=== PATIENT | female | born 1965 | race Caucasian/White ===

== ENCOUNTER → 2017-05-23 21:52 | Outpatient (CLI) | payer OTHER, SELFPAY ==
[2017-05-28 14:40] LABS: HPV Reflexed? NOT INDICATED
== END ==
PROVIDERS: Visit Provider Obstetrics & Gynecology
DX: Z12.4 Encounter for screening for malignant neoplasm of cervix (principal)
CPT/HCPCS: 88175; G0145

== ENCOUNTER → 2017-06-06 08:31 | Outpatient (CLI) | payer OTHER, SELFPAY ==
[2017-06-06 10:05] LABS: Hematocrit 41.1 % (37-47); Hemoglobin 13.8 g/dl (12.0-15.0); Mean Corp Hgb Conc 33.6 g/gl (32-36); Mean Corpuscular Hgb 30.5 pg (27.0-32.0); Mean Corpuscular Volume 90.7 fL (81-99); Mean Platelet Vol. 9.9 fl (6.2-12.0); Platelet Count 245 K/mm3 (150-450); RBC Distribution Width CV 12.4 % (11.6-14.6); RBC Distribution Width SD 40.9 fl (35.1-43.9); Red Blood Count 4.53 M/mm3 (4.2-5.4); White Blood Count 4.1 K/mm3 (4.4-11.0)
[2017-06-06 10:07] LABS: Scan Indicated on CBC? Y/N NO
[2017-06-06 10:22] LABS: Hemoglobin A1c 6.6 % (4.2-6.3)
[2017-06-06 10:24] LABS: Progesterone Level 0.19 ng/mL (See Comment)
[2017-06-06 10:27] LABS: Estradiol 19.9 pg/mL; Free T3 2.7 pg/mL (2.18-3.98); T4 Free Direct 0.97 ng/dL (0.76-1.46); Thyroid Stim Hormone (TSH) 1.68 uIU/mL (0.358-3.74)
[2017-06-06 10:28] LABS: ALB/GLOB Ratio 0.9 RATIO (0.9-2.4); AST(SGOT) 21 U/L (15-37); Alanine Aminotransfer ALT/SGPT 30 U/L (13-56); Albumin, Serum 3.4 g/dL (3.2-5.0); Alkaline Phosphatase 125 U/L (45-117); Anion Gap 7 (5-15); BUN 15 mg/dL (7-18); BUN/Creat Ratio 17.7 RATIO (10-20); Calcium,Total 8.5 mg/dL (8.5-10.1); Chloride 108 mmol/L (98-107); Cholesterol 151 mg/dL (200); Creatinine, Serum 0.85 mg/dL (0.55-1.02); EST Glomerular Filtration Rate 74 mL/min (>60); Est Glom Filt Rate - Afr Amer 90 mL/min (>60); Ferritin 63 ng/mL (8-252); Globulin 3.7 g/dL (2.2-4.2); Glucose 162 mg/dL (74-106); High Density Lipoprotein 60 mg/dL; Iron 89 ug/dL (50-170); Potassium 3.8 mmol/L (3.5-5.1); Protein, Total 7.1 g/dL (6.4-8.2); Sodium Level 141 mmol/L (136-145); Thyroid Stim Hormone (TSH) 1.71 uIU/mL (0.358-3.74); Triglycerides 140 mg/dL; Very Low Density Lipoprotein 28 mg/dL (5-40)
[2017-06-07 08:39] LABS: DHEA Sulfate 125.8 ug/dL (41.2-243.7)
== END ==
PROVIDERS: Family Provider Family Medicine; PCP Family Medicine; Visit Provider Obstetrics & Gynecology
DX: N95.1 Menopausal and female climacteric states (principal); E11.9 Type 2 diabetes mellitus without complications; G25.81 Restless legs syndrome
CPT/HCPCS: 36415; 80053; 80061; 82533; 82627; 82670; 82728; 83036; 83540; 84144; 84403; 84439; 84443; 84481; 85027; 82626

== ENCOUNTER → 2017-06-27 10:21 | Outpatient (CLI) | payer OTHER, SELFPAY ==
--- NOTE | 2017-06-27 10:22 | BI_ITS ---
MAMMOGRAPHY - BILATERAL SCREENING REASON FOR EXAM: Female, 52 years old. Routine annual screening examination. PERTINENT HISTORY: Grandmother with breast cancer. Aunts with breast cancer. TECHNIQUE: Digital bilateral breast suzan (3D mammographic acquisition) in the CC and MLO projections. 2-D mediolateral oblique (MLO) and craniocaudad (CC) views of both breasts were obtained. CAD: Full Field Digital Mammography with Computer Added Detection was performed. COMPARISON: Comparison is made with prior study dated May 23, 2014 and May 06, 2012. FINDINGS: Breast Composition: The breasts are heterogeneously dense, which may obscure small masses. There are no dominant masses or suspicious calcifications. No other significant abnormalities are identified. There has been no significant change since the prior study. BI/SCREENING MAMM (CAD), BILAT IMPRESSION: Stable bilateral screening mammogram. Yearly follow-up mammogram recommended. (A) ASSESSMENT CATEGORY: BIRADS Category 1: Negative. A letter regarding these results will be sent to the patient by the facility within 30 days. Approximately 10% of breast cancers are not detected by mammography. A normal mammogram should not delay biopsy of a clinically suspicious abnormality. [id number] Electronically Signed: Ayush Bobby MD at 12:46 EDT Tel [phone], Service support ,
== END ==
PROVIDERS: Family Provider Family Medicine; PCP Family Medicine; Visit Provider Obstetrics & Gynecology
DX: Z12.31 Encounter for screening mammogram for malignant neoplasm of breast (principal)
CPT/HCPCS: 77063; 77067

== ENCOUNTER 2017-07-14 16:00 | Outpatient (RCR) | payer OTHER, SELFPAY | END 2017-07-14 23:59 | LOC: NS 16:00 | PROVIDERS: Family Provider Family Medicine; PCP Family Medicine; Visit Provider Family Medicine | DX: E66.9 Obesity, unspecified (principal); Z68.43 Body mass index [BMI] 50.0-59.9, adult; Z71.3 Dietary counseling and surveillance | CPT/HCPCS: 97802 ==

== ENCOUNTER → 2017-08-06 10:57 | Outpatient (CLI) | payer OTHER, SELFPAY ==
--- NOTE | 2017-08-06 11:00 | RAD_ITS ---
STUDY: X-RAY CHEST REASON FOR EXAM: Female, 52 years old. Preop foot surgery. TECHNIQUE: Frontal and lateral views of the chest. COMPARISON: 02/22/2014. FINDINGS: The lungs are clear and expanded. There is no demonstrated pleural abnormality. Normal size heart. Normal mediastinum and chelsie. Normal visualized pulmonary arteries. Normal visualized aortic arch and descending thoracic aorta. Normal visualized thoracic spine. Normal visualized ribs, clavicles, and shoulders. There is no demonstrated abnormality of the visualized soft tissue structures of the upper abdomen. RAD/Chest PA and Lateral IMPRESSION: Normal x-ray examination of the chest. Electronically Signed: Alex Lovell MD at 17:28 EDT , Service support ,
[2017-08-06 12:23] LABS: Prothrombin Time (Protime)PT. 12.9 SECONDS (11.7-14.9)
[2017-08-06 12:24] LABS: Partial Thromboplast Time 30.3 Seconds (24.1-36.2)
[2017-08-06 12:39] LABS: Anion Gap 7 (5-15); BUN 14 mg/dL (7-18); BUN/Creat Ratio 15.7 RATIO (10-20); Calcium,Total 9.1 mg/dL (8.5-10.1); Chloride 105 mmol/L (98-107); Creatinine, Serum 0.89 mg/dL (0.55-1.02); EST Glomerular Filtration Rate 70 mL/min (>60); Est Glom Filt Rate - Afr Amer 84 mL/min (>60); Glucose 88 mg/dL (74-106); Sodium Level 141 mmol/L (136-145)
[2017-08-06 12:46] LABS: Hemoglobin A1c 6.2 % (4.2-6.3)
[2017-08-06 18:23] LABS: Absolute Lymphocyte Count 1.81 X10^3/ul (0.83-4.51); Absolute Neutrophil Count 5.3 X10^3/uL (2.0-7.7); Basophil# 0.03 X10^3/uL; Basophil% 0.4 % (0-1); Eosinophil# 0.31 X10^3/uL; Eosinophils% 3.8 % (0-5); Hematocrit 42.9 % (37-47); Hemoglobin 14.5 g/dl (12.0-15.0); Lymphocyte # 1.81 X10^3/ul (4.0); Lymphocyte % 22.2 % (19-41); Mean Corp Hgb Conc 33.8 g/gl (32-36); Mean Corpuscular Hgb 30.4 pg (27.0-32.0); Mean Corpuscular Volume 89.9 fL (81-99); Mean Platelet Vol. 10.1 fl (6.2-12.0); Monocyte# 0.63 X10^3/uL; Monocyte% 7.7 % (0-10); Neutrophil # 5.34 X10^3/uL (2.7-7.7); Neutrophil % 65.7 % (47-70); Platelet Count 243 K/mm3 (150-450); RBC Distribution Width SD 42.4 fl (35.1-43.9); Red Blood Count 4.77 M/mm3 (4.2-5.4); White Blood Count 8.1 K/mm3 (4.4-11.0)
[2017-08-06 18:25] LABS: POSITIVE COUNT NO; POSITIVE DIFFERENTIAL NO; POSITIVE MORPHOLOGY NO
== END ==
PROVIDERS: Family Provider Family Medicine; PCP Family Medicine; Visit Provider Family Medicine
DX: Z01.818 Encounter for other preprocedural examination (principal)
CPT/HCPCS: 36415; 71046; 80048; 83036; 85025; 85610; 85730

== ENCOUNTER 2017-08-15 07:55 | Day surgery (SDC) | payer OTHER, SELFPAY ==
[2017-08-15] VITALS (7 sets, daily range): BP systolic 106–142; BP diastolic 39–72; PULSE 65–93; RESP 16; TEMP 36.2–37.1; O2SAT 93–98; BMI 47.4
[2017-08-15 08:56] LABS: Bedside Glucose 158 mg/dL (70-110)
--- NOTE | 2017-08-15 09:20 | TESH_PTH ---
PATIENT: CHANELLE OCONNOR LOC: [facility] U#:[id number] AGE/SX: 52/F ROOM: RE08/15/[address]: Dr. Danis Alvarado DPM : 1965 BED: DIS: 08/15/2017 SPEC #: [id number] RECD: 08/15/17 14:17 STATUS: ANGIE KELLY #: [id number] JURGEN: 08/15/17 09:[address]: Danis Alvarado DEPT: SURGICAL PATHOLOGY RECD BY: Mikael Ricketts ENTERED: 08/15/17 14:52 SP TYPE: TENDON OTHR DR: Dr. 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 A piece of bone with reactive changes, negative for acute osteomyelitis. JULI:akshat 08/22/17 MICROSCOPIC DESCRIPTION Slides are reviewed. GROSS DESCRIPTION Received in fixative is one container labeled with the patient's name and designated resected heel spur and debrided Achilles tendon. The specimen consists of multiple irregular fragments of pink-white soft tissue that in aggregate measure 7 x 6 x 0.5 cm. Also present in the specimen container is a discoid fragment of pink-white bone measuring 2.5 x 1.5 x0.6 cm. Script Manager sections are submitted in three cassettes as follows: 1 & 2 ? soft tissue, 3 ? bone after decalcification. / AM:akshat 08/15/17 TC:5 CPT: 22061, 99617
--- NOTE | 2017-08-15 09:30 | RAD_ITS ---
STUDY: X-RAY - RIGHT FOOT CLINICAL: Female, 52 years old. Retrocalcaneal spur resection. TECHNIQUE: 2 intraoperative view(s) of the foot. COMPARISON: None. FINDINGS: The patient is status post retrocalcaneal spur resection. RAD/Foot min 3 Views IMPRESSION: Status post retrocalcaneal spur resection. Electronically Signed: Ayush Bobby MD at 14:02 EDT Tel [phone], Service support ,
[2017-08-15] MEDS: Bupivacaine Mpf 0.5% 30 ML VIAL (12:02)
--- NOTE | 2017-08-15 12:16 | PCM.OPRPT ---
Report of Operation Date of Procedure: 08/15/17 - Surgeon: Danis Alvarado DPM Pre-Operative Diagnosis: Achilles tendinitis with retrocalcaneal spur and Haglunds deformity, right Post-Operative Diagnosis: Same Surgery/Procedure Performed:: Achilles tendon debridement, repair w/ resection of retrocalcaneal spur and Sabine's Deformity, right (detach and reattach achilles tendon) Description of Surgical Findings:: Significant retrocalcaneal spur and Haglunds deformity, achilles tendinosis - right data migration lead: Yes - Dr. Cuello Type of Anesthesia:: General Specimen's removed: Debrided right achilles tendon and resected retrocalcaneal spur and Haglunds deformity sent to pathology Estimated Blood Loss (mL): 10mL Description of Procedure: Indications: This is a 52 year old female with chronic right posterior heel pain, despite extensive conservative/nonsurgical management. She continues to have pain and symptoms. Xrays showed a retrocalcaneal spur with Sabine's Deformity, which was confirmed with MRI as well as showing Achilles tendinosis. She continued to have pain which was really bothering her and affecting her daily activities. Because symptoms persist, she has elected to undergo detach/reattach Achilles tendon with resection of the retrocalcaneal spur and Sabine's Deformity with debridement and repair of the Achilles tendon. This was discussed with her in great detail, reviewed the possible benefits vs risks and potential complications. Typical post op recovery was reviewed with her. The goals and the expectations were reviewed with her in detail. The consent forms were reviewed with her in detail, and she freely signed them. No guarantees were given or implied. All of her questions were answered. Operative Procedure: The patient was brought back into the operating room. A time out was performed and the patient was properly identified and the surgical plan was confirmed. The patient received 900mg of IV Clindamycin for antibiotic prophylaxis. A well padded pneumatic tourniquet was applied around the right thigh. The patient received general per the anesthesiologist. The patient was placed on the operating room table in the prone position, with good padding and offloading for all of the bony prominences. She was carefully secured to the operating room table with a safety belt around her waist. The right foot/ankle/leg was scrubbed, prepped, draped in the usual aseptic fashion. The right foot was elevated for 3 minutes and the left thigh pneumatic tourniquet was inflated to 350mmHg. Attention was directed to the posterior heel. There was a palpable exostosis present at the level of the posterior calcaneus. A linear incision was made using a 15 blade to the posterior aspect of the distal Achilles tendon and posterior calcaneus. Careful blunt dissection was completed down through the subcutaneous tissue layer, down to the Achilles tendon and posterior calcaneus. The distal Achilles tendon was incised at the level of the distal midline, and was partially reflected off of the central posterior calcaneus exposing the retrocalcaneal spur and Sabine deformity. The retrocalcaneal spur and the Sabine deformity were resected using a powered sagittal saw and a powered rasp, the resected bone was sent to pathology. The Achilles tendon itself was also noted to be thickened with calcification at the level of the insertion consistent with tendinosis. Intraoperative fluoroscopy was obtained confirming proper resection of the spur and Sabine deformity. The site was flushed out with copious amounts of normal saline solution. The Achilles tendon was reattached to the central portion of the posterior calcaneus using 1 Arthrex Speedbridge in standard fashion. 2 river pilot holes were created for the 4.75mm BioComposite Swivelock anchors at the level of 1 cm proximal to the distal insertion of the Achilles tendon and central to each half of the tendon. The river pilot holes were tapped with the 4.75mm tap. The two 4.75mm BioComposite Swivel anchors were inserted. The suture was passed through the Achilles tendon on each side. The 2 distal holes were prepared on the posterior calcaneus distal to the insertion of the Achilles tendon with the drill and then the tap. One suture tail from each of the proximal anchors were retrieved and passed through the 2 SwiveLock anchors. The tension was adjusted to the appropriate tension and the 4.75 mm Swivelock anchors were inserted into the distal prepared bone sites. The suture tails were cut flush with the Swivelock anchors. The Swivelock anchors were flush with the bone. The FiberWire suture from each Swivelock anchor was also passed through the Achilles tendon and tied for extra stability and repair. 2-0 Vicryl was also used to reapproximate the midline Achilles tendon incision. There was excellent repair of the Achilles tendon, with negative Hendrix test. The surgical site was flushed out with copious amounts of normal saline solution. The subcutaneous tissue layer was reapproximated using 3-0 Vicryl. the skin was reapproximated using 4-0 Monocryl. The pneumatic tourniquet was deflated at 90 minutes, there was immediate return of warmth and perfusion to the foot and to all toes on the foot with normal temperature present. CFT < 2 seconds to all toes. 20mL of 0.5% bupivacaine plain was given as a local nerve block around the surgical site. A dressing was applied which consisted of Cavilon to the sutured skin incision edges, and then steristrips, Betadine soaked adaptic, 4x4 gauze, Kerlix and dylon bandage, and a well padded below the knee posterior splint. The patient tolerated the above operative procedure well at the anesthesia well with no complication. The patient was transported to the recovery room with vital signs stable and in good condition. Post operative orders were placed. Post operative instructions were reviewed with her as well as with her who was present with her today. No weightbearing right foot, keep right foot elevated for at least 50 minutes of every hour, keep dressing clean, dry and intact. Prescription for Percocet 5mg/325mg was prescribed: 1-2 tabs PO q 4 hours PRN pain for pain control. Xarelto 10mg tablet once a day to help prevent a blood clot. She is to follow up with me within 1 week or sooner if needed. Post operative xrays were obtained in the recovery room which confirmed resection of the right retrocalcaneal spur and Sabine deformity otherwise no acute changes with no post operative complications. Grafts/Implants Used: Arthrex Speed Bridge - Complications None
--- NOTE | 2017-08-15 12:17 | RAD_ITS ---
STUDY: X-RAY - RIGHT CALCANEUS REASON FOR EXAM: Female, 52 years old. Postoperative evaluation. TECHNIQUE: 3 view(s) of the calcaneus were obtained. COMPARISON: None. FINDINGS: There has been resection of the spur at insertion of the Achilles tendon. Postoperative soft tissue changes. RAD/Calcaneus min 2 Views IMPRESSION: Resection of the spur at the insertion of the Achilles tendon. Postoperative soft tissue changes. Electronically Signed: Ayush Bobby MD at 14:02 EDT Tel [phone], Service support ,
--- NOTE | 2017-08-15 12:20 | OP.PCM_ITS ---
Report of Operation Date of Procedure: 08/15/17 - Surgeon: Danis Alvarado DPM Pre-Operative Diagnosis: Achilles tendinitis with retrocalcaneal spur and Haglunds deformity, right Post-Operative Diagnosis: Same Surgery/Procedure Performed:: Achilles tendon debridement, repair w/ resection of retrocalcaneal spur and Sabine's Deformity, right (detach and reattach achilles tendon) Description of Surgical Findings:: Significant retrocalcaneal spur and Haglunds deformity, achilles tendinosis - right manager of tires sales: Yes - Dr. Cuello Type of Anesthesia:: General Specimen's removed: Debrided right achilles tendon and resected retrocalcaneal spur and Haglunds deformity sent to pathology Estimated Blood Loss (mL): 10mL Description of Procedure: Indications: This is a 52 year old female with chronic right posterior heel pain , despite extensive conservative/nonsurgical management. She continues to have pain and symptoms. Xrays showed a retrocalcaneal spur with Sabine's Deformity, which was confirmed with MRI as well as showing Achilles tendinosis. She continued to have pain which was really bothering her and affecting her daily activities. Because symptoms persist, she has elected to undergo detach/ reattach Achilles tendon with resection of the retrocalcaneal spur and Sabine' s Deformity with debridement and repair of the Achilles tendon. This was discussed with her in great detail, reviewed the possible benefits vs risks and potential complications. Typical post op recovery was reviewed with her. The goals and the expectations were reviewed with her in detail. The consent forms were reviewed with her in detail, and she freely signed them. No guarantees were given or implied. All of her questions were answered. Operative Procedure: The patient was brought back into the operating room. A time out was performed and the patient was properly identified and the surgical plan was confirmed. The patient received 900mg of IV Clindamycin for antibiotic prophylaxis. A well padded pneumatic tourniquet was applied around the right thigh. The patient received general per the anesthesiologist. The patient was placed on the operating room table in the prone position, with good padding and offloading for all of the bony prominences. She was carefully secured to the operating room table with a safety belt around her waist. The right foot/ankle/ leg was scrubbed, prepped, draped in the usual aseptic fashion. The right foot was elevated for 3 minutes and the left thigh pneumatic tourniquet was inflated to 350mmHg. Attention was directed to the posterior heel. There was a palpable exostosis present at the level of the posterior calcaneus. A linear incision was made using a 15 blade to the posterior aspect of the distal Achilles tendon and posterior calcaneus. Careful blunt dissection was completed down through the subcutaneous tissue layer, down to the Achilles tendon and posterior calcaneus. The distal Achilles tendon was incised at the level of the distal midline, and was partially reflected off of the central posterior calcaneus exposing the retrocalcaneal spur and Sabine deformity. The retrocalcaneal spur and the Sabine deformity were resected using a powered sagittal saw and a powered rasp, the resected bone was sent to pathology. The Achilles tendon itself was also noted to be thickened with calcification at the level of the insertion consistent with tendinosis. Intraoperative fluoroscopy was obtained confirming proper resection of the spur and Sabine deformity. The site was flushed out with copious amounts of normal saline solution. The Achilles tendon was reattached to the central portion of the posterior calcaneus using 1 Arthrex Speedbridge in standard fashion. 2 navy fighter pilot holes were created for the 4.75mm BioComposite Swivelock anchors at the level of 1 cm proximal to the distal insertion of the Achilles tendon and central to each half of the tendon. The navy fighter pilot holes were tapped with the 4.75mm tap. The two 4.75mm BioComposite Swivel anchors were inserted. The suture was passed through the Achilles tendon on each side. The 2 distal holes were prepared on the posterior calcaneus distal to the insertion of the Achilles tendon with the drill and then the tap. One suture tail from each of the proximal anchors were retrieved and passed through the 2 SwiveLock anchors. The tension was adjusted to the appropriate tension and the 4.75 mm Swivelock anchors were inserted into the distal prepared bone sites. The suture tails were cut flush with the Swivelock anchors. The Swivelock anchors were flush with the bone. The FiberWire suture from each Swivelock anchor was also passed through the Achilles tendon and tied for extra stability and repair. 2-0 Vicryl was also used to reapproximate the midline Achilles tendon incision. There was excellent repair of the Achilles tendon, with negative Hendrix test. The surgical site was flushed out with copious amounts of normal saline solution. The subcutaneous tissue layer was reapproximated using 3-0 Vicryl. the skin was reapproximated using 4-0 Monocryl. The pneumatic tourniquet was deflated at 90 minutes, there was immediate return of warmth and perfusion to the foot and to all toes on the foot with normal temperature present. CFT < 2 seconds to all toes. 20mL of 0.5% bupivacaine plain was given as a local nerve block around the surgical site. A dressing was applied which consisted of Cavilon to the sutured skin incision edges, and then steristrips, Betadine soaked adaptic, 4x4 gauze, Kerlix and dylon bandage, and a well padded below the knee posterior splint. The patient tolerated the above operative procedure well at the anesthesia well with no complication. The patient was transported to the recovery room with vital signs stable and in good condition. Post operative orders were placed. Post operative instructions were reviewed with her as well as with her who was present with her today. No weightbearing right foot, keep right foot elevated for at least 50 minutes of every hour, keep dressing clean, dry and intact. Prescription for Percocet 5mg/325mg was prescribed: 1-2 tabs PO q 4 hours PRN pain for pain control. Xarelto 10mg tablet once a day to help prevent a blood clot. She is to follow up with me within 1 week or sooner if needed. Post operative xrays were obtained in the recovery room which confirmed resection of the right retrocalcaneal spur and Sabine deformity otherwise no acute changes with no post operative complications. Grafts/Implants Used: Arthrex Speed Bridge - Complications None
--- NOTE | 2017-08-15 12:21 | DCINST_ITS ---
Discharge Diet: Light diet - advance as tolerated Discharge Activity: May Not Drive Weight Bearing Status: No weight bearing - No weightbearing right foot Keep extremity elevated above heart level: Right Leg - Keep right foot elevated for at least 50 minutes of every hour will pillows, keep back of heel offloaded at all times Call your doctor if your incision/area has: Continuous Slow Oozing, Sudden Increased Bleeding, Foul Smelling Discharge Call your doctor if you observe: Fever of 101 or Higher, Shortness of breath, Chest pain, Increased palpitations (irregular heartbeat), Calf discomfort, Uncontrolled pain Cleanse incision/area with: Do not get Incision Wet, Keep Dressing Clean & Dry Allergies/Adverse Reactions: Allergies amoxicillin trihydrate [From Augmentin] Adverse Reaction (Verified 08/12/17 15: 11) Nausea lisinopril Adverse Reaction (Verified 08/12/17 15:11) Other COUGH potassium clavulanate [From Augmentin] Adverse Reaction (Verified 08/12/17 15:11 ) Nausea sibutramine HCl monohydrate [From Meridia] Adverse Reaction (Verified 08/12/17 15:11) headache HEADACHE venlafaxine HCl [From Effexor] Adverse Reaction (Verified 08/12/17 15:11) Nausea Medications to take at Discharge Citalopram [Celexa] 20 mg PO DAILY 02/22/14 Metformin(XR) [Glucophage Xr] 500 mg PO DAILY 02/27/15 Atorvastatin Calcium [Lipitor] 20 mg PO QHS 07/15/15 Cephalexin [Keflex] 500 mg PO TID 07/15/15 Clindamycin [Cleocin] 300 mg PO Q8H 3 Days #9 cap 08/15/17 Oxycodone HCl/Acetaminophen [Percocet 5/325] 1 - 2 tab PO Q4H PRN PRN 3 Days # 30 tab 08/15/17 Rivaroxaban [Xarelto] 10 mg PO DAILY 30 Days #15 tab 08/15/17 The following prescriptions were given: Oxycodone HCl/Acetaminophen [Percocet 5/325] 1 - 2 tab PO Q4H PRN PRN 3 Days # 30 tab PRN Reason: Pain Clindamycin [Cleocin] 300 mg PO Q8H 3 Days #9 cap Rivaroxaban [Xarelto] 10 mg PO DAILY 30 Days #15 tab Primary Care Physician: Naeem Headley MD [Primary Care Provider] - Please Follow Up With: Danis Alvarado DPM When: within 1 week, sooner if needed
[2017-08-15 13:01] LABS: Bedside Glucose 112 mg/dL (70-110)
== END 2017-08-15 14:30 | disposition home or self-care (01) ==
LOC: SDC 07:56 → AC 07:58
PROVIDERS: Family Provider Family Medicine; PCP Family Medicine; Visit Provider Podiatrist
PROC: (CPT 28119; principal; 2017-08-15 09:15)
DX: M76.61 Achilles tendinitis, right leg (principal); M92.61 Juvenile osteochondrosis of tarsus, right ankle; F41.9 Anxiety disorder, unspecified; E11.9 Type 2 diabetes mellitus without complications; Z79.899 Other long term (current) drug therapy; G47.33 Obstructive sleep apnea (adult) (pediatric)
CPT/HCPCS: 01480; 27650; 28119; 73630; 73650; 76000; 82962; 88304; 88311; C1713; J7120; J2405

== ENCOUNTER 2017-09-09 09:32 | Outpatient (RCR) | payer OTHER, SELFPAY | END 2017-09-13 23:59 | LOC: NS 09:32 | PROVIDERS: Family Provider Family Medicine; PCP Family Medicine; Visit Provider Family Medicine | DX: E66.9 Obesity, unspecified (principal); Z68.43 Body mass index [BMI] 50.0-59.9, adult; Z71.3 Dietary counseling and surveillance | CPT/HCPCS: 97803 ==

== ENCOUNTER 2017-09-30 15:08 | Outpatient (RCR) | payer OTHER, SELFPAY | END 2017-09-30 23:59 | LOC: NS 15:08 | PROVIDERS: Family Provider Family Medicine; PCP Family Medicine; Visit Provider Family Medicine | DX: E66.9 Obesity, unspecified (principal); Z68.43 Body mass index [BMI] 50.0-59.9, adult; Z71.3 Dietary counseling and surveillance | CPT/HCPCS: 97803 ==

== ENCOUNTER 2017-10-15 16:54 | Outpatient (RCR) | payer OTHER, SELFPAY ==
--- NOTE | 2017-10-15 18:10 | HP.PTEVAL_ITS ---
Patient's Visit Information CHANELLE OCONNOR is a 52 year old F referred to Physical Therapy by Danis Alvarado with a diagnosis of achilles tendon debridement, removed heel spur and heel deformity. Date of Evaluation: 10/15/17 Physical Therapist: Carole Zimmerman - Visit Plan Frequency: 2 Duration: 4 Plan: 2X/ week for 4 weeks for R ankl stretching, strenghtneing, gait training, balance and proprioception with HEP - Subjective Subjective: On August 15, 2017 had surgery and was on a scooter for a month and a boot for a month. She is doing well. She has been in a normal shoe since Friday and no problems with transition. She has tightness and tenderness but overall doing ok. Pt had swelling the first few days but not bad today. stairs ; not a problems ...breaking old habits from wearing the boot. Balance is ok. - Pain R ankle pain Pain Intensity (Out of 10): 1 - Objective Gait: walks with decrease stance time on the R. Unable to toe walk on the R. Able to raise toes. R ankle AROM: 25 degrees DF and 50 degrees PF, 32 degrees INV, 15 degrees EV. L ankle AROM: 18 degrees DG and 55 degrees PF, 39 degrees INv, and 13 degrees EV. R ankle MMT: 3+/5 PF, DF 4-/5, EV 4/5 and INV 4/5. L ankle MMT: 4+/5 all four planes. SLB R 2 seconds and SLB L 30 sec - Goals Goal 1:: I HEP Goal Time Frame: 2 Weeks Goal 2:: Increase R ankle strength to be able to do X 10 heel raises on the R Goal Time Frame: 2-4 Weeks Goal 3:: Be able to SLB on the R for 30 sec without LOB Goal Time Frame: 2-4 Weeks Goal 4:: Walk with normal gait pattern and equal stance time B Goal Time Frame: 2-4 Weeks - Rehabilitation Potential Rehabilitation Potential: Good - Anticipated Interventions Patient/Client Instruction: Educate patient on: Condition, Plan of Care For the Purpose of:: To decrease pain, To decrease swelling/inflammation, To increase ROM, To improve nutrient delivery to tissue, To improve muscle performance and motor function, To improve ability to perform ADL's, To increase tolerance to activity/condition/position, To decrease level of supervision to perform tasks, To improve ability of physical actions for home/ community/work/leisure, To improve gait and locomotor functions, To improve health of tissue, To decrease soft tissue restriction, To increase flexibility/ ROM, To improve balance Therapeutic Exercise to Include: Strength training, Endurance training, Balance training, Flexibilty training, Gait and locomotor training, Passive ROM, Active ROM For the Purpose of:: To decrease pain, To increase ROM, To improve nutrient delivery to tissue, To improve muscle performance and motor function, To improve ability to perform ADL's, To increase tolerance to activity/condition/ position, To improve performance and independence with ADL's, To decrease level of supervision to perform tasks, To improve ability of physical actions for home /community/work/leisure, To improve gait and locomotor functions, To improve health of tissue, To decrease soft tissue restriction, To increase flexibility/ ROM, To improve balance Manual Therapy Techniques to Include: Scar massage, Mobilization, Passive ROM, Soft tissue mobilization For the Purpose of:: To decrease pain, To increase ROM, To improve nutrient delivery to tissue, To improve muscle performance and motor function Thank you for the opportunity to evaluate your patient. For Medicare and Medicare HMO plans, please review the plan of care and approve it. It will need to be FAXED BACK to us at [phone] for Medicare purposes. Please let me know if there are questions or concerns regarding this plan of care. Physician Signature: Date:
--- NOTE | 2017-10-21 08:39 | HP.PTDCNRP_ITS ---
HP - Discharge Summary (1) - Patient Information CHANELLE OCONNOR was seen in my office for initial evaluation on 10/15/17. The following Plan of Care was established for this patient: Initial Frequency: 2 Initial Duration: 4 - Anticipated Interventions Patient/Client Instruction: Educate patient on: Condition, Plan of Care For the Purpose of:: To decrease pain, To decrease swelling/inflammation, To increase ROM, To improve nutrient delivery to tissue, To improve muscle performance and motor function, To improve ability to perform ADL's, To increase tolerance to activity/condition/position, To decrease level of supervision to perform tasks, To improve ability of physical actions for home/ community/work/leisure, To improve gait and locomotor functions, To improve health of tissue, To decrease soft tissue restriction, To increase flexibility/ ROM, To improve balance Therapeutic Exercise to Include: Strength training, Endurance training, Balance training, Flexibilty training, Gait and locomotor training, Passive ROM, Active ROM For the Purpose of:: To decrease pain, To increase ROM, To improve nutrient delivery to tissue, To improve muscle performance and motor function, To improve ability to perform ADL's, To increase tolerance to activity/condition/ position, To improve performance and independence with ADL's, To decrease level of supervision to perform tasks, To improve ability of physical actions for home /community/work/leisure, To improve gait and locomotor functions, To improve health of tissue, To decrease soft tissue restriction, To increase flexibility/ ROM, To improve balance Manual Therapy Techniques to Include: Scar massage, Mobilization, Passive ROM, Soft tissue mobilization For the Purpose of:: To decrease pain, To increase ROM, To improve nutrient delivery to tissue, To improve muscle performance and motor function This patient was last seen in our office 10/20/17. Pertinent comments regarding their Physical therapy will appear below: Pt LM that she would not be returning to PT. DC PT. At this point I will be discontinuing this patient from physical therapy. I would be happy to see this patient again in the future if found appropriate by the physician. Thank you! Carole Zimmerman
== END 2017-10-15 19:00 | disposition home or self-care (01) ==
LOC: PT 16:54
PROVIDERS: Family Provider Family Medicine; PCP Family Medicine; Visit Provider Podiatrist
DX: Z98.890 Other specified postprocedural states (principal)
CPT/HCPCS: 97161

== ENCOUNTER → 2018-03-11 19:02 | Outpatient (CLI) | payer OTHER, SELFPAY ==
[2017-08-15 08:38] VITALS: BMI 47.4
== END ==
PROVIDERS: Family Provider Family Medicine; PCP Family Medicine; Visit Provider Family Medicine
DX: R30.0 Dysuria (principal)
CPT/HCPCS: 87086; 87088; 87186

== ENCOUNTER → 2018-05-04 16:56 | Outpatient (CLI) | payer OTHER, SELFPAY ==
[2017-08-15 08:38] VITALS: BMI 47.4
[2018-05-04 17:42] LABS: Erythrocyte Sedimentation Rate 13 mm/hr (0-30)
[2018-05-04 17:44] LABS: Hematocrit 42.8 % (37-47); Hemoglobin 13.9 g/dl (12.0-15.0); Mean Corp Hgb Conc 32.5 g/gl (32-36); Mean Corpuscular Hgb 29.8 pg (27.0-32.0); Mean Corpuscular Volume 91.8 fL (81-99); Mean Platelet Vol. 9.8 fl (6.2-12.0); Platelet Count 258 K/mm3 (150-450); RBC Distribution Width CV 12.8 % (11.6-14.6); RBC Distribution Width SD 42.8 fl (35.1-43.9); Red Blood Count 4.66 M/mm3 (4.2-5.4); White Blood Count 6.1 K/mm3 (4.4-11.0)
[2018-05-04 17:46] LABS: Scan Indicated on CBC? Y/N NO
[2018-05-04 18:12] LABS: Vitamin B12 520 pg/mL (211-911); Vitamin D,25 Hydroxy 18.5 ng/mL (29.95-100.01)
[2018-05-04 18:14] LABS: ALB/GLOB Ratio 0.8 RATIO (0.9-2.4); AST(SGOT) 27 U/L (15-37); Alanine Aminotransfer ALT/SGPT 36 U/L (13-56); Albumin, Serum 3.3 g/dL (3.2-5.0); Alkaline Phosphatase 149 U/L (45-117); Anion Gap 6 (5-15); BUN 17 mg/dL (7-18); BUN/Creat Ratio 18.5 RATIO (10-20); Calcium,Total 8.5 mg/dL (8.5-10.1); Chloride 106 mmol/L (98-107); Creatinine, Serum 0.92 mg/dL (0.55-1.02); EST Glomerular Filtration Rate 67 mL/min (>60); Est Glom Filt Rate - Afr Amer 81 mL/min (>60); Globulin 3.9 g/dL (2.2-4.2); Glucose 86 mg/dL (74-106); Iron 74 ug/dL (50-170); Potassium 3.8 mmol/L (3.5-5.1); Protein, Total 7.2 g/dL (6.4-8.2); Sodium Level 139 mmol/L (136-145); Thyroid Stim Hormone (TSH) 3.48 uIU/mL (0.358-3.74)
== END ==
PROVIDERS: Family Provider Family Medicine; PCP Family Medicine; Visit Provider Family Medicine
DX: R53.83 Other fatigue (principal)
CPT/HCPCS: 36415; 80053; 82306; 82533; 82607; 83540; 84443; 85027; 85652

== ENCOUNTER → 2018-08-24 10:12 | Outpatient (CLI) | payer OTHER, SELFPAY ==
[2017-08-15 08:38] VITALS: BMI 47.4
[2018-08-24 12:52] LABS: ALB/GLOB Ratio 0.9 RATIO (0.9-2.4); AST(SGOT) 27 U/L (15-37); Alanine Aminotransfer ALT/SGPT 37 U/L (13-56); Albumin, Serum 3.5 g/dL (3.2-5.0); Alkaline Phosphatase 111 U/L (45-117); Anion Gap 7 (5-15); BUN 13 mg/dL (7-18); BUN/Creat Ratio 12.7 RATIO (10-20); Calcium,Total 9.3 mg/dL (8.5-10.1); Chloride 104 mmol/L (98-107); Cholesterol 201 mg/dL (200); Creatinine, Serum 1.02 mg/dL (0.55-1.02); EST Glomerular Filtration Rate 60 mL/min (>60); Est Glom Filt Rate - Afr Amer 72 mL/min (>60); Globulin 3.7 g/dL (2.2-4.2); Glucose 137 mg/dL (74-106); High Density Lipoprotein 64 mg/dL; Potassium 4.3 mmol/L (3.5-5.1); Protein, Total 7.2 g/dL (6.4-8.2); Sodium Level 138 mmol/L (136-145); Thyroid Stim Hormone (TSH) 1.59 uIU/mL (0.358-3.74); Triglycerides 155 mg/dL; Very Low Density Lipoprotein 31 mg/dL (5-40)
== END ==
LOC: MFPLAB 10:12
PROVIDERS: Family Provider Family Medicine; PCP Family Medicine; Visit Provider Family Medicine
DX: E11.9 Type 2 diabetes mellitus without complications (principal)
CPT/HCPCS: 36415; 80053; 80061; 84443

== ENCOUNTER → 2018-09-26 10:54 | Outpatient (CLI) | payer OTHER, SELFPAY ==
--- NOTE | 2018-09-26 10:57 | BI_ITS ---
MAMMOGRAPHY - BILATERAL SCREENING REASON FOR EXAM: Female, 53 years old. Routine annual screening examination. PERTINENT HISTORY: Grandmother with breast cancer. Aunts with breast cancer. History of chronic bilateral milky nipple discharge. TECHNIQUE: Digital bilateral breast jimy (3D mammographic acquisition) in the CC and MLO projections. 2-D mediolateral oblique (MLO) and craniocaudad (CC) views of both breasts were obtained. CAD: Full Field Digital Mammography with Computer Added Detection was performed. COMPARISON: Comparison is made with prior study dated June 27, 2017 and May 23, 2014 FINDINGS: Breast Composition: The breasts are heterogeneously dense, which may obscure small masses. There are no dominant masses or suspicious calcifications. No other significant abnormalities are identified. There has been no significant change since the prior study. BI/SCREEN MAMM (CAD) W/JIMY BILAT IMPRESSION: Stable bilateral screening mammogram. Yearly follow-up mammogram recommended. (A) ASSESSMENT CATEGORY: BIRADS Category 1: Negative. A letter regarding these results will be sent to the patient by the facility within 30 days. Approximately 10% of breast cancers are not detected by mammography. A normal mammogram should not delay biopsy of a clinically suspicious abnormality. [id number] Electronically Signed: Ayush Bobby, at 9:07 EDT , Service support ,
== END ==
PROVIDERS: Family Provider Family Medicine; PCP Family Medicine; Referring Provider Obstetrics & Gynecology; Visit Provider Obstetrics & Gynecology
DX: Z12.31 Encounter for screening mammogram for malignant neoplasm of breast (principal)
CPT/HCPCS: 77063; 77067

== ENCOUNTER 2019-03-05 06:03 | Day surgery (SDC) | payer OTHER, SELFPAY ==
[2019-03-05] VITALS (8 sets, daily range): BP systolic 83–127; BP diastolic 43–83; PULSE 64–84; RESP 15–16; TEMP 36.3–37.1; O2SAT 92–98; BMI 54.3
[2019-03-05 06:34] LABS: Absolute Neutrophil Count 2.8 X10^3/uL (2.0-7.7); Basophil# 0.04 X10^3/uL; Basophil% 0.8 % (0-1); Eosinophil# 0.31 X10^3/uL; Eosinophils% 6.3 % (0-5); Hematocrit 41.2 % (37-47); Hemoglobin 13.6 g/dL (12.0-15.0); Lymphocyte % 26.5 % (19-41); Mean Corpuscular Hgb 30.3 pg (27.0-32.0); Mean Corpuscular Volume 91.8 fL (81-99); Monocyte# 0.49 X10^3/uL; NRBC Flagged by Analyzer 0 % (0-5); Neutrophil # 2.75 X10^3/uL (2.7-7.7); Neutrophil % 56.2 % (47-70); Platelet Count 235 K/mm3 (150-450); RBC Distribution Width CV 12.3 % (11.6-14.6); RBC Distribution Width SD 41.1 fl (35.1-43.9); Red Blood Count 4.49 M/mm3 (4.2-5.4); White Blood Count 4.9 K/mm3 (4.4-11.0)
[2019-03-05 06:55] LABS: Anion Gap 3 (5-15); BUN 12 mg/dL (7-18); BUN/Creat Ratio 12.6 RATIO (10-20); Calcium,Total 8.6 mg/dL (8.5-10.1); Chloride 107 mmol/L (98-107); Creatinine, Serum 0.95 mg/dL (0.55-1.02); EST Glomerular Filtration Rate 65 mL/min (>60); Est Glom Filt Rate - Afr Amer 78 mL/min (>60); Glucose 195 mg/dL (74-106); Potassium 3.8 mmol/L (3.5-5.1); Sodium Level 139 mmol/L (136-145)
[2019-03-05] MEDS: Lactated Ringers 1,000 ML 100 ML IV ×2 (07:00→10:31)
[2019-03-05 07:11] LABS: Bedside Glucose 179 mg/dL (70-110)
--- NOTE | 2019-03-05 07:15 | DCINST_ITS ---
Discharge Diet: Light diet - advance as tolerated Discharge Activity: May not drive while taking narcotic pain medications., Use Walker Weight Bearing Status: No weight bearing - No weightbearing left foot Keep extremity elevated above heart level: Left Leg - Keep left foot elevated for at least 50 minutes of every hour, keep pressure off of heel Call your doctor if your incision/area has: Continuous Slow Oozing, Sudden Increased Bleeding, Foul Smelling Discharge Call your doctor if you observe: Fever of 101 or Higher, Coldness, Increased Pain, Shortness of breath, Chest pain, Increased palpitations (irregular heartbeat), Calf discomfort, Uncontrolled pain Cleanse incision/area with: Do not get Incision Wet, Keep Dressing Clean & Dry Allergies/Adverse Reactions: Allergies amoxicillin trihydrate [From Augmentin] Adverse Reaction (Verified 03/05/19 06:43) Nausea lisinopril Adverse Reaction (Verified 03/05/19 06:43) Other COUGH potassium clavulanate [From Augmentin] Adverse Reaction (Verified 03/05/19 06:43) Nausea sibutramine HCl monohydrate [From Meridia] Adverse Reaction (Verified 03/05/19 06:43) headache HEADACHE venlafaxine HCl [From Effexor] Adverse Reaction (Verified 03/05/19 06:43) Nausea Medications to take at Discharge Citalopram [Celexa] 20 mg PO DAILY 02/22/14 metFORMIN (XR) [Glucophage Xr] 500 mg PO DAILY 02/27/15 Atorvastatin Calcium [Lipitor] 20 mg PO QHS 07/15/15 Loratadine [Claritin] 10 mg PO DAILY 03/04/19 Oxycodone HCl/Acetaminophen [Percocet 5/325] 1 - 2 tab PO Q6H PRN PRN 3 Days #24 tab 03/05/19 Rivaroxaban [Xarelto] 10 mg PO DAILY #14 tab 03/05/19 The following prescriptions were given: Oxycodone HCl/Acetaminophen [Percocet 5/325] 1 - 2 tab PO Q6H PRN PRN 3 Days #24 tab PRN Reason: Pain Prescription Printed Rivaroxaban [Xarelto] 10 mg PO DAILY #14 tab Prescription Printed Orders to be completed after discharge: CBC W/Diff, Automated Time Frame: 03/05/19, Facility: [facility], Location: Laboratory Comprehensive Metabolic Profil Time Frame: 03/05/19, Facility: [facility], Location: Laboratory Primary Care Physician: Naeem Headley MD [Primary Care Provider] - Test Results: Test results from this visit will be discussed in further detail at your follow- up appointment, if applicable. Please Follow Up With: Danis Alvarado DPM When: 1 week, sooner if needed
--- NOTE | 2019-03-05 07:21 | PCM.OPRPT ---
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 Plantar fasciitis with infracalcaneal spur, left Post-Operative Diagnosis: Same Surgery/Procedure Performed:: 1. Detach/reattach achilles tendon with debridement with removal of retrocalcaneal spur and Sabine's deformity, left. 2. Plantar fasciotomy with resection of infracalcaneal spur, left denial resolution specialist: yes - Dr. Alexa Vidal Type of Anesthesia:: General, Local Specimen's removed: Debrided achilles tendon with resected haglunds deformity and retrocalcaneal spur, left - sent to pathology Estimated Blood Loss (mL): 2mL Description of Procedure: Indications: This is a 53 year old female with chronic left heel pain, to the posterior heel as well as the inferior heel, despite extensive conservative/nonsurgical management. She continues to have pain and symptoms. Xrays showed an infracalcaneal as well as retrocalcaneal exostosis/spur with Sabine's Deformity, which are the sites of pain. She continues to have pain which was really bothering her and affecting her daily activities. Because symptoms persist, she has elected to undergo detach/reattach Achilles tendon with resection of the retrocalcaneal spur and Sabine's Deformity with debridement and repair of the Achilles tendon, along with plantar fasciotomy with resection of infracalcaneal spur. She declined an MRI pre op. She had previous right heel pain which resolved with surgery. The procedures were discussed with her in great detail, reviewed the possible benefits vs risks and potential complications. Typical post op recovery was reviewed with her. The goals and the expectations were reviewed with her in detail. The consent forms were reviewed with her in detail, and she freely signed them. No guarantees were given or implied. All of her questions were answered. Operative Procedure: The patient was brought back into the operating room. A time out was performed and the patient was properly identified and the surgical plan was confirmed. The patient received 900mg of IV Clindamycin for antibiotic prophylaxis. A well padded pneumatic tourniquet was applied around the left thigh. The patient received general per the anesthesiologist. The patient was placed on the operating room table in the prone position, with good padding and offloading for all of the bony prominences. She was carefully secured to the operating room table with a safety belt around her waist. The left foot/ankle/leg were scrubbed, prepped, draped in the usual aseptic fashion. The left foot was elevated for 3 minutes and the left thigh pneumatic tourniquet was inflated to 350mmHg. Attention was directed to the posterior heel. There was a large palpable exostosis present at the level of the posterior calcaneus consistent with Sabine's deformity as well as retrocalcaneal exostosis. A linear incision was made using a 15 blade to the posterior aspect of the distal Achilles tendon and posterior calcaneus. Careful blunt dissection was completed down through the subcutaneous tissue layer, down to the Achilles tendon and posterior calcaneus. The distal Achilles tendon was incised at the level of the distal midline, and was partially reflected off of the central posterior calcaneus exposing the retrocalcaneal spur and Sabine deformity. The retrocalcaneal spur and the Sabine deformity were resected using a powered sagittal saw and a powered rasp, the resected bone was sent to pathology. The Achilles tendon itself was also noted to be thickened with calcification at the level of the insertion consistent with tendinosis. Intraoperative fluoroscopy was obtained confirming proper resection of the spur and Sabine deformity. The site was flushed out with copious amounts of normal saline solution. The Achilles tendon was reattached to the central portion of the posterior calcaneus using 1 Arthrex Speedbridge in standard fashion. 2 railroad brake operator holes were created for the 4.75mm BioComposite Swivelock anchors at the level of 1 cm proximal to the distal insertion of the Achilles tendon and central to each half of the tendon. The railroad brake operator holes were tapped with the 4.75mm tap. The two 4.75mm BioComposite Swivel anchors were inserted. The suture was passed through the Achilles tendon on each side. The 2 distal holes were prepared on the posterior calcaneus distal to the insertion of the Achilles tendon with the drill and then the tap. One suture tail from each of the proximal anchors were retrieved and passed through the 2 SwiveLock anchors. The tension was adjusted to the appropriate tension and the 4.75 mm Swivelock anchors were inserted into the distal prepared bone sites. The suture tails were cut flush with the Swivelock anchors. The Swivelock anchors were flush with the bone. The FiberWire suture from each Swivelock anchor was also passed through the Achilles tendon and tied for extra stability and repair. 3-0 Vicryl was also used to reapproximate the midline Achilles tendon incision. There was excellent repair of the Achilles tendon, with negative Hendrix test. The surgical site was flushed out with copious amounts of normal saline solution. The subcutaneous tissue layer was reapproximated using 3-0 Vicryl. the skin was reapproximated using 4-0 Monocryl. Attention was directed to the left inferior heel. The infracalcaneal spur was visualized on intra operative fluoroscopy. A skin incision was made to the medial hindfoot at the level of the plantar fascia and infracalcaneal spur, careful dissection was completed down through the subcutaneous tissue layer. A plane was created superiorly and inferiorly around the plantar fascia and the medial 50% of the plantar fascia was released via a plantar fasciotomy. It was noted there was significant thickening of the plantar fascia with fibrosis consistent with chronic plantar fasciitis. The infracalcaneal spur was felt, and was carefully resected using a powered rasp. Resection of the infracalcaneal spur was confirmed using intraoperative fluoroscopy. Images pre and post infracalcaneal spur resection were saved. The site was flushed out with copious amounts of normal saline solution. The skin was reapproximated using 3-0 Nylon. The pneumatic tourniquet was deflated at 93 minutes, there was immediate return of warmth and perfusion to the foot and to all toes on the foot with normal temperature present. CFT < 2 seconds to all toes. 30mL of 0.5% bupivacaine plain was given as a local nerve block around the surgical site. A dressing was applied which consisted of Cavilon to the sutured skin incision edges, and then steristrips, Betadine soaked adaptic, 4x4 gauze, Kerlix and dylon bandage, and a well padded below the knee posterior splint. The patient tolerated the above operative procedure well at the anesthesia well with no complication. The patient was transported to the recovery room with vital signs stable and in good condition. Post operative orders were placed. Post operative instructions were reviewed with her as well as with her who was present with her today. No weightbearing left foot, keep left foot elevated for at least 50 minutes of every hour, keep dressing clean, dry and intact. Prescription for Percocet 5mg/325mg was prescribed: 1-2 tabs PO q 6 hours PRN pain for pain control. Xarelto 10mg tablet once a day to help prevent a blood clot. She is to follow up with me within 1 week or sooner if needed. Post operative xrays were obtained in the recovery room which confirmed resection of the left retrocalcaneal spur and Sabine deformity, as well as resection of infracalcaneal spur, otherwise no acute changes with no post operative complications. Grafts/Implants Used: Arthrex Speed Bridge - Complications None
[2019-03-05] MEDS: Bupivacaine Mpf 0.5% 30 ML VIAL (07:30)
--- NOTE | 2019-03-05 07:30 | BON_PTH ---
PATIENT: CHANELLE OCONONR [place] [facility] [place][id number] AGE/SX: 53/F ROOM: RE03/05/[address]: Dr. Danis Alvarado DPM : 1965 BED: DIS: 03/05/2019 SPEC #: [id number] RECD: 03/05/19 10:25 STATUS: ANGIE ROBIN #: [id number] JURGEN: 03/05/19 07:[address]: Danis Alvarado DEPT: SURGICAL PATHOLOGY RECD BY: Florentino Frey ENTERED: 03/05/19 11:43 SP TYPE: Bone OTHR DR: Dr. Yann Headley MD Tissues: Bone of foot, NOS Procedures: Decalcification bone/plaque Surgery Specimen Level IV HEADER OPERATION: Reattach Achilles tendon with debridement and repair PRE-OP DIAGNOSIS: Left foot Achilles bursitis TISSUE SUBMITTED: Left foot bone and debrided Achilles tendon MICROSCOPIC DIAGNOSIS Soft tissue and bone left foot, biopsy: Focal fibrosis and minimal chronic inflammation. Bone with changes of repair. No evidence of osteomyelitis. AM:akshat 03/11/19 MICROSCOPIC DESCRIPTION Slides are reviewed. GROSS DESCRIPTION Received in fixative is one container labeled with the patient's name and designated left foot bone and debrided Achilles tendon. The specimen consists of multiple fragments of bone and soft tissue that in aggregate measure 4.5 x 4 x 1 cm. The entire specimen is submitted in four cassettes as follows: 1??soft tissue, 2-4 - bone after decalcification. / JULI:akshat 03/05/19 TC:3 CPT: 97675, [id number]
--- NOTE | 2019-03-05 07:30 | RAD_ITS ---
STUDY: X-RAY - LEFT ANKLE REASON FOR EXAM: Female, 53 years old. DETATCH/REATTACH LEFT ACHILLES TENDON WITH DEBRIDEMENT AND REPAIR, RESECTION OF RETROCALCANEAL SPUR LEFT. TECHNIQUE: 3 intraoperative view(s) of the ankle. COMPARISON: None. FINDINGS: Intraoperative imaging provided for resection of the plantar spur as well as spur at insertion of the Achilles tendon. RAD/Ankle min 3 Views IMPRESSION: Intraoperative imaging provided for removal of the plantar spur as well as a retrocalcaneal spur. Electronically Signed: Ayush Bobby, at 12:15 EST , Service support ,
--- NOTE | 2019-03-05 10:08 | RAD_ITS ---
STUDY: X-RAY - LEFT CALCANEUS REASON FOR EXAM: Female, 53 years old. LEFT POST OP CALCANEAL FILMS. TECHNIQUE: 2 view(s) of the calcaneus were obtained. COMPARISON: Earlier today FINDINGS: There is a lucent defect of the superior/posterior calcaneus with small bony flecks along the inferior calcaneus. RAD/Calcaneus min 2 Views IMPRESSION: 1. Operative changes along the inferior calcaneus compatible with bone spur removal. Electronically Signed: Roberto Pat MD ([place]) at 10:44 EST , Service support ,
[2019-03-05 10:46] LABS: Bedside Glucose 205 mg/dL (70-110)
== END 2019-03-05 13:39 | disposition home or self-care (01) ==
LOC: SDC 06:03 → AC 06:05
PROVIDERS: Family Provider Family Medicine; PCP Family Medicine; Referring Provider Podiatrist; Visit Provider Podiatrist
PROC: (CPT 28119; principal; 2019-03-05 07:15)
DX: M76.62 Achilles tendinitis, left leg (principal); M72.2 Plantar fascial fibromatosis; M92.62 Juvenile osteochondrosis of tarsus, left ankle; M89.9 Disorder of bone, unspecified; E11.9 Type 2 diabetes mellitus without complications; G47.33 Obstructive sleep apnea (adult) (pediatric); E78.00 Pure hypercholesterolemia, unspecified; F41.9 Anxiety disorder, unspecified; Z79.84 Long term (current) use of oral hypoglycemic drugs; Z79.899 Other long term (current) drug therapy
CPT/HCPCS: 01472; 20999; 27650; 28119; 73610; 73650; 76000; 80048; 82962; 85025; 88304; 88305; 88311; J7120; J2405

== ENCOUNTER → 2019-09-21 08:37 | Outpatient (CLI) | payer OTHER, SELFPAY ==
[2019-03-05 06:44] VITALS: BMI 54.3
[2019-09-21 11:04] LABS: ALB/GLOB Ratio 0.9 RATIO (0.9-2.4); AST(SGOT) 20 U/L (15-37); Alanine Aminotransfer ALT/SGPT 32 U/L (13-56); Albumin, Serum 3.5 g/dL (3.2-5.0); Alkaline Phosphatase 122 U/L (45-117); Anion Gap 7 (5-15); BUN 14 mg/dL (7-18); BUN/Creat Ratio 15.8 RATIO (10-20); Calcium,Total 8.7 mg/dL (8.5-10.1); Chloride 103 mmol/L (98-107); Cholesterol 172 mg/dL (200); Creatinine, Serum 0.89 mg/dL (0.55-1.02); EST Glomerular Filtration Rate 70 mL/min (>60); Est Glom Filt Rate - Afr Amer 84 mL/min (>60); Globulin 3.8 g/dL (2.2-4.2); Glucose 169 mg/dL (74-106); High Density Lipoprotein 64 mg/dL; Protein, Total 7.3 g/dL (6.4-8.2); Sodium Level 139 mmol/L (136-145); Thyroid Stim Hormone (TSH) 1.87 uIU/mL (0.358-3.74); Triglycerides 160 mg/dL; Very Low Density Lipoprotein 32 mg/dL (5-40)
== END ==
PROVIDERS: PCP Family Medicine; Referring Provider Family Medicine; Visit Provider Family Medicine
DX: E11.9 Type 2 diabetes mellitus without complications (principal)
CPT/HCPCS: 36415; 80053; 80061; 84443

== ENCOUNTER → 2019-09-28 10:14 | Outpatient (CLI) | payer OTHER, SELFPAY ==
[2019-03-05 06:44] VITALS: BMI 54.3
--- NOTE | 2019-09-28 10:16 | BI_ITS ---
MAMMOGRAPHY - BILATERAL SCREENING REASON FOR EXAM: Female, 54 years old. Routine annual screening examination. PERTINENT HISTORY: Grandmother with breast cancer. Aunts with breast cancer. TECHNIQUE: Digital bilateral breast jimy (3D mammographic acquisition) in the CC and MLO projections. 2-D mediolateral oblique (MLO) and craniocaudad (CC) views of both breasts were obtained. CAD: Full Field Digital Mammography with Computer Added Detection was performed. COMPARISON: Comparison is made with prior study dated September 26, 2018 and June 28, 2007. FINDINGS: Breast Composition: The breasts are heterogeneously dense, which may obscure small masses. There are no dominant masses or suspicious calcifications. Stable small benign-appearing bilateral axillary lymph nodes. No other significant abnormalities are identified. There has been no significant change since the prior study. BI/SCREEN MAMM (CAD) W/JIMY BILAT IMPRESSION: Stable bilateral screening mammogram. Yearly follow-up mammogram recommended. (A) ASSESSMENT CATEGORY: BIRADS Category 2: Benign. A letter regarding these results will be sent to the patient by the facility within 30 days. Approximately 10% of breast cancers are not detected by mammography. A normal mammogram should not delay biopsy of a clinically suspicious abnormality. [id number] Electronically Signed: Ayush Bobby, at 12:16 EDT , Service support ,
== END ==
PROVIDERS: PCP Family Medicine; Referring Provider Family Medicine; Visit Provider Family Medicine
DX: Z12.31 Encounter for screening mammogram for malignant neoplasm of breast (principal)
CPT/HCPCS: 77063; 77067

== ENCOUNTER → 2020-01-31 16:02 | Outpatient (CLI) | payer OTHER, SELFPAY ==
[2019-03-05 06:44] VITALS: BMI 54.3
== END ==
PROVIDERS: PCP Family Medicine; Visit Provider Family Medicine
DX: J06.9 Acute upper respiratory infection, unspecified (principal)
CPT/HCPCS: 87635; U0003

== ENCOUNTER → 2020-05-17 13:58 | Outpatient (CLI) | payer OTHER, SELFPAY ==
[2019-03-05 06:44] VITALS: BMI 54.3
--- NOTE | 2020-05-17 14:15 | RAD_ITS ---
STUDY: X-RAY - LUMBOSACRAL SPINE REASON FOR EXAM: Female, 55 years old. LOWER BACK PAIN -- LEFT HIP PAIN TECHNIQUE: 7 view(s) of the lumbosacral spine were obtained. COMPARISON: May 12, 2014 lumbar spine x-ray FINDINGS: There is a mildly exaggerated physiologic lordosis. There is no substantial scoliosis. There is slight anterolisthesis at the level of L4-L5 of approximately 3 mm to 3.5 mm. This is more apparent than the prior study May 12, 2014 or new. With flexion view this is fairly similar to the neutral view and the extension view. There is multilevel endplate spondylosis of the lumbar vertebrae. There is disc space narrowing L4-L5 L5-S1. There is facet arthropathy. Normal bilateral sacral ala, sacroiliac joints, and visualized sacrum. Normal visualized soft tissue structures. RAD/L/S Spine w Bend Min 6 Vw IMPRESSION: Degenerative changes of the lumbar spine. Worse at the level since prior, of L4-L5 with slight anterolisthesis without visualized significant instability. Electronically Signed: Anastasiya Millan MD at 2:07 EST Tel , Service support ,
== END ==
LOC: MTRAD 14:00
PROVIDERS: PCP Family Medicine; Referring Provider Family Medicine; Visit Provider Family Medicine
DX: M54.5 Low back pain (principal)
CPT/HCPCS: 72110; 72114

== ENCOUNTER → 2020-08-15 07:09 | Outpatient (CLI) | payer OTHER, SELFPAY ==
[2019-03-05 06:44] VITALS: BMI 54.3
[2020-08-15 10:30] LABS: Anion Gap 9 (5-15); BUN 17 mg/dL (7-18); BUN/Creat Ratio 18.3 RATIO (10-20); Calcium,Total 9.3 mg/dL (8.5-10.1); Chloride 105 mmol/L (98-107); Cholesterol 169 mg/dL (200); Creatinine, Serum 0.93 mg/dL (0.55-1.02); EST Glomerular Filtration Rate 66 mL/min (>60); Est Glom Filt Rate - Afr Amer 80 mL/min (>60); Glucose 134 mg/dL (74-106); High Density Lipoprotein 57 mg/dL; Potassium 3.9 mmol/L (3.5-5.1); Sodium Level 139 mmol/L (136-145); Triglycerides 155 mg/dL; Very Low Density Lipoprotein 31 mg/dL (5-40)
== END ==
PROVIDERS: PCP Family Medicine; Referring Provider Family Medicine; Visit Provider Family Medicine
DX: E11.9 Type 2 diabetes mellitus without complications (principal)
CPT/HCPCS: 36415; 80048; 80061

== ENCOUNTER → 2020-11-15 | Outpatient (CLI) | payer OTHER, SELFPAY | END | disposition home or self-care (01) | PROVIDERS: PCP Family Medicine; Visit Provider Family Medicine | DX: J02.9 Acute pharyngitis, unspecified (principal) | CPT/HCPCS: 87635; U0005; U0003 ==

== ENCOUNTER → 2020-11-24 | Outpatient (CLI) | payer OTHER, SELFPAY | END | disposition home or self-care (01) | LOC: LABSPEC 16:12 | PROVIDERS: PCP Family Medicine; Referring Provider Family Medicine; Visit Provider Family Medicine | DX: Z20.822 Contact with and (suspected) exposure to COVID-19 (principal) | CPT/HCPCS: 87633; 87635; U0005; U0003 ==

== ENCOUNTER → 2021-07-16 | Outpatient (CLI) | payer OTHER, SELFPAY ==
[2021-07-16 10:13] LABS: Vitamin D,25 Hydroxy 74.4 ng/mL
[2021-07-16 10:20] LABS: ALB/GLOB Ratio 0.9 RATIO (0.9-2.4); AST(SGOT) 25 U/L (15-37); Alanine Aminotransfer ALT/SGPT 29 U/L (13-56); Albumin, Serum 3.2 g/dL (3.2-5.0); Alkaline Phosphatase 109 U/L (45-117); Anion Gap 5 (5-15); BUN 20 mg/dL (7-18); BUN/Creat Ratio 21.1 RATIO (10-20); Calcium,Total 8.3 mg/dL (8.5-10.1); Chloride 108 mmol/L (98-107); Cholesterol 138 mg/dL (200); Creatinine, Serum 0.95 mg/dL (0.55-1.02); EST Glomerular Filtration Rate 64 mL/min (>60); Est Glom Filt Rate - Afr Amer 78 mL/min (>60); Globulin 3.5 g/dL (2.2-4.2); Glucose 152 mg/dL (74-106); High Density Lipoprotein 54 mg/dL; Potassium 3.8 mmol/L (3.5-5.1); Protein, Total 6.7 g/dL (6.4-8.2); Sodium Level 141 mmol/L (136-145); Thyroid Stim Hormone (TSH) 1.53 uIU/mL (0.358-3.74); Triglycerides 104 mg/dL; Very Low Density Lipoprotein 21 mg/dL (5-40)
== END | disposition home or self-care (01) ==
LOC: MFPLAB 08:39
PROVIDERS: PCP Family Medicine; Visit Provider Family Medicine
DX: E11.9 Type 2 diabetes mellitus without complications (principal); E55.9 Vitamin D deficiency, unspecified
CPT/HCPCS: 36415; 80053; 80061; 82306; 84443

== ENCOUNTER → 2021-11-01 | Outpatient (CLI) | payer OTHER, SELFPAY ==
--- NOTE | 2021-11-01 08:24 | BI_ITS ---
MAMMOGRAPHY - BILATERAL SCREENING REASON FOR EXAM: Female, 56 years old. Routine annual screening examination. PERTINENT HISTORY: Grandmother with breast cancer. Aunts with breast cancer. TECHNIQUE: Digital bilateral breast jimy (3D mammographic acquisition) in the CC and MLO projections. 2-D mediolateral oblique (MLO) and craniocaudad (CC) views of both breasts were obtained. CAD: Full Field Digital Mammography with Computer Added Detection was performed. COMPARISON: Comparison is made with prior study dated 09/28/2019 and 09/26/2018. FINDINGS: Breast Composition: The breasts are heterogeneously dense, which may obscure small masses. There are no dominant masses or suspicious calcifications. Stable small benign-appearing bilateral No other significant abnormalities are identified. There has been no significant change since the prior study. BI/SCRN MAMM (CAD)W/JIMY BILAT IMPRESSION: Stable bilateral screening mammogram. Yearly follow-up mammogram recommended. (A) ASSESSMENT CATEGORY: BIRADS Category 2: Benign. A letter regarding these results will be sent to the patient by the facility within 30 days. Approximately 10% of breast cancers are not detected by mammography. A normal mammogram should not delay biopsy of a clinically suspicious abnormality. [id number] Electronically Signed: Ayush Bobby MD at 9:58 EDT ,
== END | disposition home or self-care (01) ==
LOC: OPBI 08:22
PROVIDERS: PCP Family Medicine; Visit Provider Family Medicine
DX: Z12.31 Encounter for screening mammogram for malignant neoplasm of breast (principal); Z80.3 Family history of malignant neoplasm of breast
CPT/HCPCS: 77063; 77067

== ENCOUNTER → 2022-02-11 | Outpatient (CLI) | payer OTHER, SELFPAY | END | disposition home or self-care (01) | LOC: LABSPEC 15:09 | PROVIDERS: PCP Family Medicine; Visit Provider Family Medicine | DX: R10.9 Unspecified abdominal pain (principal) | CPT/HCPCS: 87086; 87088 ==

== ENCOUNTER → 2022-02-19 | Outpatient (CLI) | payer OTHER, SELFPAY | END | disposition home or self-care (01) | LOC: LABSPEC 14:59 | PROVIDERS: PCP Family Medicine; Visit Provider Family Medicine | DX: R05.9 Cough, unspecified (principal) | CPT/HCPCS: 87635; U0003; U0005 ==

== ENCOUNTER → 2022-03-25 | Outpatient (CLI) | payer OTHER, SELFPAY ==
[2022-03-25 17:56] LABS: Absolute Lymphocyte Count 1.62 X10^3/uL (0.83-4.51); Absolute Neutrophil Count 4.6 X10^3/uL (2.0-7.7); Basophil# 0.04 X10^3/uL; Basophil% 0.5 % (0-1); Eosinophil# 0.66 X10^3/uL; Eosinophils% 8.7 % (0-5); Hemoglobin 12.7 g/dL (12.0-15.0); Lymphocyte # 1.62 X10^3/ul (0.83-4.51); Lymphocyte % 21.3 % (19-41); Mean Corpuscular Hgb 27.7 pg (27.0-32.0); Mean Corpuscular Volume 89.5 fL (81-99); Mean Platelet Vol. 9.8 fl (6.2-12.0); Monocyte% 9.2 % (0-10); NRBC Flagged by Analyzer 0 % (0-5); Neutrophil # 4.56 X10^3/uL (2.7-7.7); Platelet Count 325 K/mm3 (150-450); RBC Distribution Width CV 13.2 % (11.6-14.6); RBC Distribution Width SD 43.1 fl (35.1-43.9); Red Blood Count 4.58 M/mm3 (4.2-5.4); White Blood Count 7.6 K/mm3 (4.4-11.0)
[2022-03-25 18:09] LABS: ALB/GLOB Ratio 0.9 RATIO (0.9-2.4); AST(SGOT) 18 U/L (15-37); Alanine Aminotransfer ALT/SGPT 28 U/L (13-56); Albumin, Serum 3.4 g/dL (3.2-5.0); Alkaline Phosphatase 157 U/L (45-117); Anion Gap 10 (5-15); BUN 19 mg/dL (7-18); BUN/Creat Ratio 17.1 RATIO (10-20); Calcium,Total 9.1 mg/dL (8.5-10.1); Chloride 103 mmol/L (98-107); Creatinine, Serum 1.11 mg/dL (0.55-1.02); EST Glomerular Filtration Rate 54 mL/min (>60); Est Glom Filt Rate - Afr Amer 65 mL/min (>60); Globulin 3.6 g/dL (2.2-4.2); Glucose 135 mg/dL (74-106); Potassium 3.9 mmol/L (3.5-5.1); Sodium Level 141 mmol/L (136-145)
== END | disposition home or self-care (01) ==
LOC: MFPLAB 14:27
PROVIDERS: PCP Family Medicine; Visit Provider Nurse Practitioner Family
DX: R10.9 Unspecified abdominal pain (principal)
CPT/HCPCS: 36415; 80053; 85025

== ENCOUNTER → 2022-04-02 | Outpatient (CLI) | payer OTHER, SELFPAY ==
--- NOTE | 2022-04-02 15:19 | CT_ITS ---
EXAM: CT ABDOMEN AND PELVIS WITH INTRAVENOUS CONTRAST CLINICAL INDICATION: pain TECHNIQUE: Helically acquired images were obtained of the abdomen and pelvis with intravenous contrast. This CT exam was performed using one or more of the following dose reduction techniques: automated exposure control, adjustment of the mA and/or kV according to patient size, and/or use of iterative reconstruction technique. This report was created using [employer] report generation technology. CONTRAST: Oral and amp; IV Readi-CAT and amp; 100mL Isovue-300 COMPARISON: None. FINDINGS: LOWER THORAX: There is a small hiatal hernia. Lung bases are clear. No cardiomegaly. No significant pericardial effusion. ABDOMEN: LIVER: Unremarkable. Homogeneous. No focal mass. GALLBLADDER AND BILE DUCTS: There are several gallstones present but no inflammation. No gallbladder distention or wall edema. No intra- or extrahepatic biliary ductal dilation. PANCREAS: Unremarkable. No focal cystic or solid mass. SPLEEN: Unremarkable. Normal size without focal cystic or solid mass. ADRENALS: Unremarkable. No nodules. KIDNEYS AND URETERS: Unremarkable. Normal renal size and position. No hydronephrosis. STOMACH AND BOWEL: Unremarkable. No stomach or bowel distention. No focal inflammatory change. PELVIS: APPENDIX: No evidence of acute appendicitis. BLADDER: Unremarkable. REPRODUCTIVE: Patient is status post hysterectomy. ABDOMEN and PELVIS: INTRAPERITONEAL SPACE: Unremarkable. No ascites or other fluid collection. No free air. BONES/JOINTS: Unremarkable. No suspicious lytic or blastic abnormality. SOFT TISSUES: Unremarkable. No discrete abdominal or pelvic wall hernia. VASCULATURE: Unremarkable. Abdominal aorta is non-dilated. LYMPH NODES: Unremarkable. No enlarged lymph nodes. CT/Abdomen/Pelvis WITH Contrast IMPRESSION: No acute findings in the abdomen or pelvis. Electronically Signed: Dru Smith MD at 20:45 EST ,
== END | disposition home or self-care (01) ==
LOC: CT 15:19
PROVIDERS: PCP Family Medicine; Referring Provider Nurse Practitioner Family; Visit Provider Nurse Practitioner Family
DX: R10.9 Unspecified abdominal pain (principal)
CPT/HCPCS: 74177; Q9967

== ENCOUNTER → 2022-04-08 | Outpatient (CLI) | payer OTHER, SELFPAY ==
[2022-04-08 15:15] LABS: Absolute Lymphocyte Count 1.45 X10^3/uL (0.83-4.51); Absolute Neutrophil Count 3.5 X10^3/uL (2.0-7.7); Basophil# 0.04 X10^3/uL; Basophil% 0.6 % (0-1); Eosinophil# 0.61 X10^3/uL; Eosinophils% 9.8 % (0-5); Hematocrit 37.3 % (37-47); Hemoglobin 11.8 g/dL (12.0-15.0); Lymphocyte # 1.45 X10^3/ul (0.83-4.51); Lymphocyte % 23.2 % (19-41); Mean Corp Hgb Conc 31.6 g/dL (32-36); Mean Corpuscular Hgb 27.6 pg (27.0-32.0); Mean Corpuscular Volume 87.4 fL (81-99); Mean Platelet Vol. 9.6 fl (6.2-12.0); Monocyte# 0.63 X10^3/uL; Monocyte% 10.1 % (0-10); NRBC Flagged by Analyzer 0 % (0-5); Neutrophil # 3.49 X10^3/uL (2.7-7.7); Platelet Count 323 K/mm3 (150-450); RBC Distribution Width CV 13.2 % (11.6-14.6); RBC Distribution Width SD 41.7 fl (35.1-43.9); Red Blood Count 4.27 M/mm3 (4.2-5.4); White Blood Count 6.2 K/mm3 (4.4-11.0)
[2022-04-08 16:08] LABS: ALB/GLOB Ratio 0.9 RATIO (0.9-2.4); AST(SGOT) 19 U/L (15-37); Alanine Aminotransfer ALT/SGPT 28 U/L (13-56); Albumin, Serum 3.1 g/dL (3.2-5.0); Alkaline Phosphatase 156 U/L (45-117); Anion Gap 8 (5-15); BUN 14 mg/dL (7-18); BUN/Creat Ratio 14.5 RATIO (10-20); Calcium,Total 8.7 mg/dL (8.5-10.1); Chloride 104 mmol/L (98-107); Creatinine, Serum 0.97 mg/dL (0.55-1.02); EST Glomerular Filtration Rate 63 mL/min (>60); Est Glom Filt Rate - Afr Amer 76 mL/min (>60); Globulin 3.6 g/dL (2.2-4.2); Glucose 146 mg/dL (74-106); Potassium 4.4 mmol/L (3.5-5.1); Protein, Total 6.7 g/dL (6.4-8.2); Sodium Level 139 mmol/L (136-145)
== END | disposition home or self-care (01) ==
LOC: MFPLAB 13:58
PROVIDERS: PCP Family Medicine; Visit Provider Nurse Practitioner Family
DX: D72.10 Eosinophilia, unspecified (principal); R74.8 Abnormal levels of other serum enzymes
CPT/HCPCS: 36415; 80053; 85025

== ENCOUNTER → 2022-04-09 | Outpatient (CLI) | payer OTHER, SELFPAY | END | disposition home or self-care (01) | LOC: LABSPEC 11:00 | PROVIDERS: PCP Family Medicine; Referring Provider Family Medicine; Visit Provider Nurse Practitioner Family | DX: K92.1 Melena (principal) | CPT/HCPCS: 87177; 87209; 87493; 87506 ==

== ENCOUNTER → 2022-09-25 | Outpatient (CLI) | payer OTHER, SELFPAY ==
[2022-09-25 12:46] LABS: ALB/GLOB Ratio 0.9 RATIO (0.9-2.4); AST(SGOT) 21 U/L (15-37); Alanine Aminotransfer ALT/SGPT 18 U/L (13-56); Albumin, Serum 3.2 g/dL (3.2-5.0); Alkaline Phosphatase 110 U/L (45-117); Anion Gap 4 (5-15); BUN 15 mg/dL (7-18); BUN/Creat Ratio 16.3 RATIO (10-20); Calcium,Total 8.6 mg/dL (8.5-10.1); Chloride 106 mmol/L (98-107); Cholesterol 154 mg/dL (200); Creatinine, Serum 0.92 mg/dL (0.55-1.02); EST Glomerular Filtration Rate 66 mL/min (>60); Est Glom Filt Rate - Afr Amer 80 mL/min (>60); Globulin 3.5 g/dL (2.2-4.2); Glucose 157 mg/dL (74-106); High Density Lipoprotein 61 mg/dL; Potassium 4.2 mmol/L (3.5-5.1); Protein, Total 6.7 g/dL (6.4-8.2); Sodium Level 138 mmol/L (136-145); Thyroid Stim Hormone (TSH) 1.86 uIU/mL (0.358-3.74); Triglycerides 121 mg/dL; Very Low Density Lipoprotein 24 mg/dL (5-40)
== END | disposition home or self-care (01) ==
LOC: MFPLAB 10:00
PROVIDERS: PCP Family Medicine; Visit Provider Family Medicine
DX: E11.9 Type 2 diabetes mellitus without complications (principal); E55.9 Vitamin D deficiency, unspecified
CPT/HCPCS: 36415; 80053; 80061; 82306; 84443

== ENCOUNTER → 2022-11-27 | Outpatient (CLI) | payer OTHER, SELFPAY ==
--- NOTE | 2022-11-27 15:44 | BI_ITS ---
MAMMOGRAPHY - BILATERAL SCREENING REASON FOR EXAM: Female, 57 years old. Routine annual screening examination. PERTINENT HISTORY: Grandmother with breast cancer. Aunts with breast cancer. TECHNIQUE: Digital bilateral breast jimy (3D mammographic acquisition) in the CC and MLO projections. 2-D mediolateral oblique (MLO) and craniocaudad (CC) views of both breasts were obtained. CAD: Full Field Digital Mammography with Computer Added Detection was performed. COMPARISON: Comparison is made with prior study November 01, 2021 and September 28, 2019. FINDINGS: Breast Composition: The breasts are heterogeneously dense, which may obscure small masses. There are no dominant masses or suspicious calcifications. Stable small benign-appearing bilateral axillary lymph nodes. No other significant abnormalities are identified. There has been no significant change since the prior study. BI/SCRN MAMM (CAD)W/JIMY BILAT IMPRESSION: Stable bilateral screening mammogram. Yearly follow-up mammogram recommended. (A) ASSESSMENT CATEGORY: BIRADS Category 2: Benign. A letter regarding these results will be sent to the patient by the facility within 30 days. Approximately 10% of breast cancers are not detected by mammography. A normal mammogram should not delay biopsy of a clinically suspicious abnormality. [id number] Electronically Signed: Ayush Bobby MD at 8:26 EDT ,
== END | disposition home or self-care (01) ==
LOC: OPBI 15:43
PROVIDERS: PCP Family Medicine; Referring Provider Family Medicine; Visit Provider Family Medicine
DX: Z12.31 Encounter for screening mammogram for malignant neoplasm of breast (principal)
CPT/HCPCS: 77063; 77067

== ENCOUNTER → 2023-03-27 | Outpatient (CLI) | payer OTHER, SELFPAY ==
--- NOTE | 2023-03-27 14:23 | RAD_ITS ---
STUDY: X-RAY - LEFT KNEE REASON FOR EXAM: Female, 58 years old. pain, medial L knee point and gt; other multiple joints TECHNIQUE: 4 view(s) of the knee. COMPARISON: None. FINDINGS: Normal visualized distal femur. Normal visualized proximal tibia and fibula. Normal proximal tibiofibular articulation. Mildly narrowed medial femorotibial compartment with spurring of the medial tibial condyle. Normal lateral femorotibial compartment. Normal patellofemoral articulation. The soft tissue structures are unremarkable. RAD/Knee 4 or More Views IMPRESSION: Mild degenerative change. No acute fracture or dislocation. Electronically Signed: Danis Resendiz MD at 17:14 EST ,
[2023-03-27 17:41] LABS: Absolute Lymphocyte Count 2.14 X10^3/uL (0.83-4.51); Absolute Neutrophil Count 2.8 X10^3/uL (2.0-7.7); Basophil# 0.04 X10^3/uL; Basophil% 0.7 % (0-1); Eosinophil# 0.23 X10^3/uL; Eosinophils% 3.9 % (0-5); Hemoglobin 13.4 g/dL (12.0-15.0); Lymphocyte # 2.14 X10^3/ul (0.83-4.51); Lymphocyte % 36.3 % (19-41); Mean Corp Hgb Conc 31.2 g/dL (32-36); Mean Corpuscular Hgb 27.5 pg (27.0-32.0); Mean Corpuscular Volume 88.3 fL (81-99); Mean Platelet Vol. 9.7 fl (6.2-12.0); Monocyte# 0.66 X10^3/uL; Monocyte% 11.2 % (0-10); NRBC Flagged by Analyzer 0 % (0-5); Neutrophil # 2.76 X10^3/uL (2.7-7.7); Neutrophil % 46.9 % (47-70); Platelet Count 303 K/mm3 (150-450); RBC Distribution Width CV 14.2 % (11.6-14.6); RBC Distribution Width SD 45.4 fl (35.1-43.9); Red Blood Count 4.87 M/mm3 (4.2-5.4); White Blood Count 5.9 K/mm3 (4.4-11.0)
[2023-03-27 18:13] LABS: ALB/GLOB Ratio 0.9 RATIO (0.9-2.4); AST(SGOT) 21 U/L (15-37); Alanine Aminotransfer ALT/SGPT 17 U/L (13-56); Albumin, Serum 3.7 g/dL (3.2-5.0); Alkaline Phosphatase 103 U/L (45-117); Anion Gap 2 (5-15); BUN 18 mg/dL (7-18); BUN/Creat Ratio 20.1 RATIO (10-20); CRP < 2.90 mg/L (0.0-3.0); Calcium,Total 9.3 mg/dL (8.5-10.1); Chloride 107 mmol/L (98-107); Creatinine, Serum 0.89 mg/dL (0.55-1.02); EST Glomerular Filtration Rate 68 mL/min (>60); Est Glom Filt Rate - Afr Amer 83 mL/min (>60); Globulin 3.9 g/dL (2.2-4.2); Glucose 89 mg/dL (74-106); Potassium 4.5 mmol/L (3.5-5.1); Protein, Total 7.6 g/dL (6.4-8.2); Rheumatoid Factor < 10.0 IU/mL (<15); Sodium Level 139 mmol/L (136-145); Thyroid Stim Hormone (TSH) 1.38 uIU/mL (0.358-3.74); Uric Acid 4.5 mg/dL (2.6-6.0)
[2023-03-27 18:24] LABS: Erythrocyte Sedimentation Rate 12 mm/hr (0-30)
[2023-03-31 10:13] LABS: ANTINUCLEAR ANTIBODIES DIRECT Negative (Negative)
== END | disposition home or self-care (01) ==
LOC: MTLAB 14:22
PROVIDERS: PCP Family Medicine; Referring Provider Family Medicine; Visit Provider Family Medicine
DX: M25.50 Pain in unspecified joint (principal)
CPT/HCPCS: 36415; 73564; 80053; 84443; 84550; 85025; 85652; 86038; 86140; 86431

== ENCOUNTER → 2023-12-08 | Outpatient (CLI) | payer OTHER, SELFPAY ==
--- NOTE | 2023-12-08 15:04 | RAD_ITS ---
STUDY: X-RAY - ABDOMEN/PELVIS REASON FOR EXAM: Female, 58 years old. constipation TECHNIQUE: 4 images COMPARISON: None. FINDINGS: Normal visualized lung bases. Diffuse fecal retention noted within much of the colon.. There is no demonstrated free abdominal air. The visualized liver, spleen and kidneys are grossly normal in size and morphology. Normal soft tissue structures. Lumbar spine demonstrates degenerative changes. RAD/Abd Inc Decub and/or Erect IMPRESSION: Nonspecific diffuse fecal retention within the colon.. Electronically Signed: Danis Resendiz MD at 22:58 EDT ,
[2023-12-08 17:58] LABS: Absolute Lymphocyte Count 1.55 X10^3/uL (0.83-4.51); Absolute Neutrophil Count 3.2 X10^3/uL (2.0-7.7); Basophil# 0.04 X10^3/uL; Basophil% 0.7 % (0-1); Eosinophil# 0.34 X10^3/uL; Hematocrit 40.8 % (37-47); Hemoglobin 13.1 g/dL (12.0-15.0); Lymphocyte # 1.55 X10^3/ul (0.83-4.51); Lymphocyte % 27.2 % (19-41); Mean Corp Hgb Conc 32.1 g/dL (32-36); Mean Corpuscular Hgb 29.4 pg (27.0-32.0); Mean Corpuscular Volume 91.5 fL (81-99); Mean Platelet Vol. 9.3 fl (6.2-12.0); Monocyte% 10.5 % (0-10); NRBC Flagged by Analyzer 0 % (0-5); Neutrophil # 3.15 X10^3/uL (2.7-7.7); Neutrophil % 55.4 % (47-70); Platelet Count 285 K/mm3 (150-450); RBC Distribution Width CV 12.8 % (11.6-14.6); Red Blood Count 4.46 M/mm3 (4.2-5.4); White Blood Count 5.7 K/mm3 (4.4-11.0)
[2023-12-08 18:28] LABS: Vitamin D,25 Hydroxy 51.2 ng/mL
[2023-12-08 18:38] LABS: ALB/GLOB Ratio 0.9 RATIO (0.9-2.4); AST(SGOT) 22 U/L (15-37); Alanine Aminotransfer ALT/SGPT 17 U/L (13-56); Albumin, Serum 3.6 g/dL (3.2-5.0); Alkaline Phosphatase 109 U/L (45-117); Anion Gap 3 (5-15); BUN 16 mg/dL (7-18); CRP < 2.90 mg/L (0.0-3.0); Calcium,Total 9.6 mg/dL (8.5-10.1); Chloride 104 mmol/L (98-107); EST Glomerular Filtration Rate 60 mL/min (>60); Est Glom Filt Rate - Afr Amer 73 mL/min (>60); Globulin 3.8 g/dL (2.2-4.2); Glucose 112 mg/dL (74-106); Magnesium 2.1 mg/dL (1.6-2.6); Potassium 4.2 mmol/L (3.5-5.1); Protein, Total 7.4 g/dL (6.4-8.2); Sodium Level 138 mmol/L (136-145)
[2023-12-08 18:52] LABS: Erythrocyte Sedimentation Rate 25 mm/hr (0-30)
== END | disposition home or self-care (01) ==
PROVIDERS: PCP Family Medicine; Referring Provider Family Medicine; Visit Provider Family Medicine
DX: K51.90 Ulcerative colitis, unspecified, without complications (principal); K59.00 Constipation, unspecified; E55.9 Vitamin D deficiency, unspecified; G47.9 Sleep disorder, unspecified
CPT/HCPCS: 36415; 74019; 80053; 82306; 83735; 84443; 85025; 85652; 86140

== ENCOUNTER → 2023-12-30 | Outpatient (CLI) | payer OTHER, SELFPAY ==
[2023-12-30 17:48] LABS: Hematocrit 39.4 % (37-47); Hemoglobin 12.6 g/dL (12.0-15.0); Mean Corpuscular Hgb 29.2 pg (27.0-32.0); Mean Corpuscular Volume 91.2 fL (81-99); Mean Platelet Vol. 9.2 fl (6.2-12.0); Platelet Count 270 K/mm3 (150-450); RBC Distribution Width CV 12.4 % (11.6-14.6); RBC Distribution Width SD 41.6 fl (35.1-43.9); Red Blood Count 4.32 M/mm3 (4.2-5.4); White Blood Count 5.6 K/mm3 (4.4-11.0)
[2023-12-30 17:51] LABS: Erythrocyte Sedimentation Rate 24 mm/hr (0-30)
[2023-12-30 18:04] LABS: CRP < 2.90 mg/L (0.0-3.0)
== END | disposition home or self-care (01) ==
LOC: MTLAB 16:44
PROVIDERS: PCP Family Medicine; Referring Provider Internal Medicine Gastroenterology; Visit Provider Internal Medicine Gastroenterology
DX: K51.90 Ulcerative colitis, unspecified, without complications (principal)
CPT/HCPCS: 36415; 85027; 85652; 86140

== ENCOUNTER → 2024-03-11 | Outpatient (CLI) | payer OTHER, SELFPAY ==
--- NOTE | 2024-03-11 09:49 | BI_ITS ---
MAMMOGRAPHY - BILATERAL SCREENING 3-D TOMOSYNTHESIS REASON FOR EXAM: Female, 59 years old. SCREENING PERTINENT HISTORY: No significant family history. TECHNIQUE: 2-D mammograms and 3-D Tomosynthesis of the breast (s) were performed. CAD was performed. COMPARISON: 11/27/2022 FINDINGS: The breast composition is composed of scattered fibroglandular density. Scattered benign calcifications are seen. No dense spiculated masses or suspicious microcalcifications are identified. No architectural distortion is identified. There is no skin thickening or retraction. There has been no significant change since the prior study. BI/SCRN MAMM (CAD)W/JIMY BILAT IMPRESSION: No mammographic signs of malignancy. Routine yearly mammograms recommended. ASSESSMENT CATEGORY: BIRADS Category 1: Negative. A letter regarding these results will be sent to the patient by the facility within 30 days. FOLLOW UP RECOMMENDATION: Yearly follow up mammogram recommended. (A) Approximately 10% of breast cancers are not detected by mammography. A normal mammogram should not delay biopsy of a clinically suspicious abnormality. Electronically Signed: Mikael Figueroa MD at 10:38 EST ,
== END | disposition home or self-care (01) ==
LOC: OPBI 09:47
PROVIDERS: PCP Family Medicine; Referring Provider Family Medicine; Visit Provider Family Medicine
DX: Z12.31 Encounter for screening mammogram for malignant neoplasm of breast (principal)
CPT/HCPCS: 77063; 77067

== ENCOUNTER → 2024-03-15 | Outpatient (CLI) | payer OTHER, SELFPAY ==
[2024-03-15 10:19] LABS: Absolute Lymphocyte Count 1.68 X10^3/uL (0.83-4.51); Absolute Neutrophil Count 2.5 X10^3/uL (2.0-7.7); Basophil# 0.04 X10^3/uL; Basophil% 0.8 % (0-1); Eosinophil# 0.26 X10^3/uL; Eosinophils% 5.2 % (0-5); Hematocrit 40.7 % (37-47); Hemoglobin 13.1 g/dL (12.0-15.0); Lymphocyte # 1.68 X10^3/ul (0.83-4.51); Lymphocyte % 33.7 % (19-41); Mean Corp Hgb Conc 32.2 g/dL (32-36); Mean Corpuscular Hgb 28.9 pg (27.0-32.0); Mean Corpuscular Volume 89.6 fL (81-99); Mean Platelet Vol. 9.4 fl (6.2-12.0); Monocyte# 0.49 X10^3/uL; Monocyte% 9.8 % (0-10); NRBC Flagged by Analyzer 0 % (0-5); Neutrophil # 2.51 X10^3/uL (2.7-7.7); Neutrophil % 50.3 % (47-70); Platelet Count 248 K/mm3 (150-450); RBC Distribution Width CV 12.7 % (11.6-14.6); RBC Distribution Width SD 41.6 fl (35.1-43.9); Red Blood Count 4.54 M/mm3 (4.2-5.4)
[2024-03-15 10:26] LABS: Vitamin D,25 Hydroxy 39.4 ng/mL
[2024-03-15 10:32] LABS: CRP < 2.90 mg/L (0.0-3.0); Erythrocyte Sedimentation Rate 17 mm/hr (0-30); Iron 97 ug/dL (50-170)
[2024-03-15 10:36] LABS: Anion Gap 3 (5-15); BUN 18 mg/dL (7-18); BUN/Creat Ratio 21.3 RATIO (10-20); Calcium,Total 9.1 mg/dL (8.5-10.1); Chloride 107 mmol/L (98-107); Cholesterol 190 mg/dL (200); Creatinine, Serum 0.84 mg/dL (0.55-1.02); EST Glomerular Filtration Rate 73 mL/min (>60); Est Glom Filt Rate - Afr Amer 88 mL/min (>60); Glucose 121 mg/dL (74-106); High Density Lipoprotein 82 mg/dL; Potassium 3.7 mmol/L (3.5-5.1); Sodium Level 137 mmol/L (136-145); Triglycerides 121 mg/dL; Very Low Density Lipoprotein 24 mg/dL (5-40)
== END | disposition home or self-care (01) ==
PROVIDERS: PCP Family Medicine; Referring Provider Internal Medicine Gastroenterology; Visit Provider Internal Medicine Gastroenterology
DX: K51.90 Ulcerative colitis, unspecified, without complications (principal); E11.9 Type 2 diabetes mellitus without complications; D50.9 Iron deficiency anemia, unspecified; E55.9 Vitamin D deficiency, unspecified
CPT/HCPCS: 36415; 80048; 80061; 82306; 83540; 85025; 85652; 86140

== ENCOUNTER 2024-07-17 12:40 | Emergency (ER) | payer OTHER, SELFPAY ==
[2024-07-17 12:43] VITALS: BP 135/82; PULSE 95; RESP 18; TEMP 37.1; O2SAT 98; BMI 48.2
[2024-07-17] MEDS: HYDROcodone Bitartrate/Apap 5/325 Tablet PO (13:09)
[2024-07-17 13:24] VITALS: BP 117/51; PULSE 75; RESP 16; TEMP 37.1; O2SAT 98
--- NOTE | 2024-07-17 13:30 | ED.VIS.LOWEX ---
HPI <KISHA Her - Last Filed: 07/17/24 13:37> History of Present Illness Chief Complaint: Lower Extremity Injury Narrative Narrative: Patient presenting today with pain to her left leg that has been ongoing for months. She reports that the pain is primarily to her left knee but does radiate across the posterior aspect of her leg, she reports that over the past 2 months her pain has been worse, she did see her PCP and had an x-ray performed of her left knee that was unremarkable. She is scheduled to have an MRI performed in the next 2 weeks. Over the past several days her pain has been worse, she did see her PCP yesterday and was prescribed tramadol. She did take a dose of this but had minimal improvement of her pain, prompting her to come in to be seen. She denies any history of blood clots or recent surgery/travel/immobilization. She denies any injury to her leg. She denies paresthesias to the leg. [facility] <KISHA Her - Last Filed: 07/17/24 13:37> [facility] Medical History no medical history Home Medications ?Medication ?Instructions ?Recorded ?Last Taken ?Type citalopram 20 mg tablet 20 mg PO DAILY 02/22/14 Unknown History metformin 500 mg tablet,extended 500 mg PO DAILY 02/27/15 Unknown History release 24 hr atorvastatin 20 mg tablet 20 mg PO QHS 07/15/15 Unknown History loratadine 10 mg capsule 10 mg PO DAILY allergies 03/04/19 Unknown History balsalazide 750 mg capsule 2,250 mg PO TID 07/17/24 Unknown History hydrocodone-acetaminophen 5-325mg 1 tab PO Q6H PRN PRN Pain 3 days 07/17/24 Unknown Rx 5mg-325mg #12 TABLETS semaglutide 2 mg/dose (8 mg/3 mL) 2 mg subcut QWEEK 07/17/24 Unknown History subcutaneous pen injector (Ozempic) tramadol 50 mg tablet 50 mg PO TID PRN pain 07/17/24 Unknown History Allergy/AdvReac Type Severity Reaction Status Date / Time amoxicillin trihydrate (From AdvReac Nausea Verified 07/17/24 12:41 Augmentin) lisinopril AdvReac Other Verified 07/17/24 12:41 potassium clavulanate (From AdvReac Nausea Verified 07/17/24 12:41 Augmentin) sibutramine HCl monohydrate AdvReac headache Verified 07/17/24 12:41 (From Meridia) venlafaxine HCl (From AdvReac Nausea Verified 07/17/24 12:41 Effexor) Family History no significant family his Surgical History no surgical history Social History Smoking Status: Never smoker ROS <KISHA Her - Last Filed: 07/17/24 13:37> ROS ED Constitutional Constitutional ED: Denies chills or fever(s) Cardiovascular Cardiovascular: Denies chest pain Respiratory/Chest Respiratory/Chest: Denies dyspnea Gastrointestinal Gastrointestinal: Denies abdominal pain Musculoskeletal Musculoskeletal: Reports arthralgias and myalgias Integumentary Denies rash Neurologic Neurologic: Denies paresthesias EXAM <KISHA Her - Last Filed: 07/17/24 13:37> Physical Exam Const Vital Signs: 07/17/24 12:43 07/17/24 13:24 Temperature 98.7 F 98.7 F Temperature Source Temporal Pulse Rate 95 75 Respiratory Rate 18 16 Blood Pressure 135/82 H 117/51 L Blood Pressure Mean 99 73 Pulse Ox 98 98 Oxygen Delivery Method Room Air Positive well nourished, well developed and no apparent distress General Appearance ED: well developed HEENT Reports normocephalic and head/scalp atraumatic Mouth ED: Yes moist mucous membranes normal Eyes PERRL and EOMs intact bilaterally Neck full ROM and supple Chest Wall inspection of chest normal Resp normal respiratory effort and clear to auscultation bilaterally Cardio regular rate and regular rhythm Back/Spine normal ROM and normal to inspection Extremity normal to inspection and full ROM Extremity Narrative: No edema to the bilateral lower extremities, no erythema to the left leg, full range of motion to the left hip, ankle, and knee. Left DP pulse 2+, good cap refill, sensation intact. No palpable cords. No signs of infection. Generalized pain to palpation both to the anterior and posterior aspect of the left knee and lower leg. Neuro moves all extremities, no focal motor deficits and no sensory deficits noted Sensorium / Orientation: awake and alert Psych mental status grossly normal and thought process normal Skin no rashes or lesions noted and no wounds <Messi Archer MD - Last Filed: 07/17/24 16:19> Physical Exam Const Vital Signs: 07/17/24 12:43 07/17/24 13:24 Temperature 98.7 F 98.7 F Temperature Source Temporal Pulse Rate 95 75 Respiratory Rate 18 16 Blood Pressure 135/82 H 117/51 L Blood Pressure Mean 99 73 Pulse Ox 98 98 Oxygen Delivery Method Room Air [facility] <KISHA Her - Last Filed: 07/17/24 13:37> [facility] Narrative Medical decision making narrative: Patient presenting today with pain to her left leg that has been ongoing for months but worse over the last several days. She has been worked up by her PCP for this, her pain is primarily the left knee but does radiate up and down the posterior aspect of her left leg. She did have a left knee x-ray performed that was negative. She is scheduled to have an MRI soon. She reports that she has not yet been worked up for a DVT. She does not have any edema on exam, no palpable cord, no signs of infection, no sign of ischemic limb. She is neurovascularly intact. She is able to ambulate. Unfortunately we are unable to obtain an ultrasound here today given it is a Friday. I will give her a outpatient prescription to have this performed. She was placed on tramadol yesterday which she took 1 dose of with minimal improvement of her pain. I will give her a prescription for [place] instead with first dose here. Recommended she discontinue the tramadol. RICE instructions were discussed with her, recommended she follow closely with her PCP and she will be discharged home in stable condition. <Messi Archer MD - Last Filed: 07/17/24 16:19> [facility] Treatment and Re-Evaluation Narrative: Dr. Archer: I have personally performed a face to face assessment of the patient and have reviewed the ADOLFO Note. I performed a substantive portion of the visit including all aspects of the following. My means findings include: History is left leg pain behind knee times months. Scheduled for outpatient MRI. Had previous x-ray. Started on tramadol. Exam is afebrile. Vital signs noted. Regular rate and rhythm. Lungs clear to auscultation bilaterally. Positive tenderness left posterior antecubital fossa and distally. Medical Decision Making: Differential diagnosis includes Cheng's cyst versus ligament strain versus internal derangement versus DVT. Her pain has been ongoing and she is supposed to get an MRI in the next 9 days. Ultrasound currently unavailable. Oral analgesia follow-up primary care, outpatient DVT study. Discharge. Other additions or changes: [None] Discharge Plan Triage Chief Complaint: Lower Extremity Injury ED Midlevel Provider: Asha Cordova ED Provider: Messi Archer Dx/Rx/DC Orders Clinical Impression: Left leg pain Instructions: ED Myalgias Prescriptions: New hydrocodone-acetaminophen 5-325 mg tablet 1 tab PO Q6H PRN PRN (Reason: Pain) 3 Days Qty: 12 0RF No Action citalopram 20 MG tablet 20 mg PO DAILY Patient Comments: depression metformin 500 MG tablet 500 mg PO DAILY atorvastatin 20 MG tablet 20 mg PO QHS loratadine 10 MG capsule 10 mg PO DAILY tramadol 50 mg tablet 50 mg PO TID PRN balsalazide 750 mg capsule 2,250 mg PO TID Ozempic 2 mg/dose (8 mg/3 mL) pen injector 2 mg subcut QWEEK Other Ambulatory Orders: Venous Duplex US, Unilateral (Stat) Facility: [facility] - Location: [facility] Ordered By: Asha Cordova Primary Care Provider: Yann Headley Referrals: Yann Headley MD [Primary Care Provider] - 5-7 Days Activity Restrictions/Additional Instructions: Follow-up with your PCP and return for any other concerns. Also can take ibuprofen for pain as needed. Print Language: Yi Disposition Disposition: Home, Self Care Discharge Date/Time: 07/17/24 13:52
== END 2024-07-17 13:52 | disposition home or self-care (01) ==
PROVIDERS: Emergency Provider Emergency Medicine; PCP Family Medicine; Visit Provider Emergency Medicine
DX: M79.605 Pain in left leg (principal)
CPT/HCPCS: 99282

== ENCOUNTER 2024-07-18 10:59 | Emergency (ER) | payer OTHER, SELFPAY ==
[2024-07-18 11:00] VITALS: BP 131/67; PULSE 89; RESP 16; TEMP 36.6; O2SAT 98; BMI 48.2
--- NOTE | 2024-07-18 11:30 | ED.VIS.LOWEX ---
HPI History of Present Illness HPI Narrative: 59-year-old female left lower leg pain. Evaluation by primary care physician. Also given emergency room yesterday. On outpatient ultrasound done today which showed a left soleus DVT. No prior history. Denies any recent hospitalization or surgery. No chest pain or shortness of breath. No prior DVT or PE. She does drive a lot for work often 12 hours or more week. No history of clotting disorder. Chief Complaint: Lower Extremity Injury Informant: patient Occured/Mechanism Mechanism/Context: No injury and No blunt trauma Onset/Context/Timing Onset: Weeks Context: Gradual Onset Timing: Intermittent Quality of Pain: Sharp Current Severity: Mild Maximum Severity: Mild Narrative Narrative: 59-year-old female with atraumatic left lower leg pain. An outpatient ultrasound showed a left soleus DVT. Was seen emergency department yesterday. Had labs in January which showed normal kidney function and blood counts. Prior similar symptoms: Yes Recent Illness/Hospitalization: No PFSH PFSH Home Medications ?Medication ?Instructions ?Recorded ?Last Taken ?Type citalopram 20 mg tablet 20 mg PO DAILY 02/22/14 Unknown History metformin 500 mg tablet,extended 500 mg PO DAILY 02/27/15 Unknown History release 24 hr atorvastatin 20 mg tablet 20 mg PO QHS 07/15/15 Unknown History loratadine 10 mg capsule 10 mg PO DAILY allergies 03/04/19 Unknown History balsalazide 750 mg capsule 2,250 mg PO TID 07/17/24 Unknown History hydrocodone-acetaminophen 5-325mg 1 tab PO Q6H PRN PRN Pain 3 days 07/17/24 Unknown Rx 5mg-325mg #12 TABLETS semaglutide 2 mg/dose (8 mg/3 mL) 2 mg subcut QWEEK 07/17/24 Unknown History subcutaneous pen injector (Ozempic) tramadol 50 mg tablet 50 mg PO TID PRN pain 07/17/24 Unknown History apixaban 5 mg (74 tabs) tablets in 5 mg PO BID #74 tabs 07/18/24 Unknown Rx a dose pack (Eliquis DVT-PE Treat 30D Start) Allergy/AdvReac Type Severity Reaction Status Date / Time amoxicillin trihydrate (From AdvReac Nausea Verified 07/18/24 11:00 Augmentin) lisinopril AdvReac Other Verified 07/18/24 11:00 potassium clavulanate (From AdvReac Nausea Verified 07/18/24 11:00 Augmentin) sibutramine HCl monohydrate AdvReac headache Verified 07/18/24 11:00 (From Meridia) venlafaxine HCl (From AdvReac Nausea Verified 07/18/24 11:00 Effexor) Social History Smoking Status: Never smoker ROS ROS ED ROS Narrative Denies recent illness. Constitutional Constitutional ED: Denies chills or fever(s) Eyes Eyes: Denies blurry vision ENT ENT ED: Denies ear pain Cardiovascular Cardiovascular: Denies chest pain Respiratory/Chest Respiratory/Chest: Denies cough or dyspnea Gastrointestinal Gastrointestinal: Denies abdominal pain Genitourinary Genitourinary ED: Denies dysuria or hematuria Musculoskeletal Musculoskeletal: Denies arthralgias or back pain Integumentary Denies abscess or Abrasions Neurologic Neurologic: Denies headache(s) Psychiatric Psychiatric: Denies anxiety Endocrine Endocrinology: Denies polydipsia Hematologic/Lymphatic Hematologic/Lymphatic: Denies easy bleeding, easy bruising or lymphadenopathy Allergic/Immunologic Allergic/Immunologic ED: Denies mouth swelling, tongue swelling or urticaria EXAM Physical Exam Narrative Exam Narrative: 59-year-old female sitting upright in bed at bedside. Vital signs stable afebrile. Pulse ox 98% on room air. No nausea. H EENT exam pupils are round reactive light. Extra motions are intact. Neck nontender no JVD. Lungs clear to auscultation bilaterally. Heart regular rhythm no murmur. Rate about 90. Chest wall and ribs nontender. Abdomen soft nontender. Moving all 4 extremities. Calves are nontender without edema or cords. Trace swelling in her left lower extremity compared to the right. Normal DP pulses. Normal dorsi plantarflexion. No redness. No warmth. No cellulitis. She is able to flex extend at both hips knees and ankles. Normal strength and sensation. Neurologically she is awake alert. No focal motor deficits. Const Vital Signs: 07/18/24 11:00 Temperature 97.9 F Temperature Source Oral Pulse Rate 89 Respiratory Rate 16 Blood Pressure 131/67 H Blood Pressure Mean 88 Pulse Ox 98 Oxygen Delivery Method Room Air Positive well nourished and well developed; Negative for cachectic, contractures or unkempt General Appearance ED: well developed and NAD; Negative for unkempt, cachectic or contractures Nutritional Appearance: Negative for cachectic HEENT Reports moist mucous membranes normocephalic and atraumatic Eyes PERRL Neck full ROM and supple Thyroid: Negative for tender Chest Wall inspection of chest normal and palpation of chest normal Resp normal respiratory effort, no retractions and clear to auscultation bilaterally Effort and Inspection: Negative for pain with movement Auscultation: Negative for rales, rhonchi, wheezes or diminished lung sounds Cardio regular rate, regular rhythm, S1 normal heart sound, S2 normal heart sound and no murmurs Rate: Negative for bradycardia or tachycardic Rhythm: Negative for abnormal rhythm Bruits: Negative for other GI non-tender, non-distended and no masses Inspection: Negative for abdominal distention Auscultation: normoactive bowel sounds Palpation: soft; Negative for tender or guarding Back/Spine no CVA tenderness General Back: Negative for CVA tenderness or swelling Cervical Spine: Negative for cervical spine tenderness Thoracic Spine / Upper Back: Negative for thoracic spinal tenderness Lumbar Spine / Lower Back: Negative for lumbar spinal tenderness Extremity normal to inspection and full ROM Extremity Narrative: No cellulitis. No significant swelling. Neurovascular intact. Palpable DP pulse on both ankles. Normal dorsi plantarflexion. Normal sensation. General Extremety ED: Negative for cyanosis General Extremity: Negative for cyanosis Neuro oriented x3, CN's II-XII intact bilaterally, moves all extremities and no sensory deficits noted Sensorium / Orientation: alert, oriented to person, oriented to place and oriented to time; Negative for orientation impaired, confused, lethargic or stuporous Motor Exam: strength 5/5 throughout Psych mental status grossly normal Appearance: Negative for unkempt Skin no wounds Lesions: no lesions Rashes: no rashes MDM MDM MDM Narrative Medical decision making narrative: 59-year-old female has had left lower extremity pain. Currently is on gabapentin and hydrocodone. Had an outpatient ordered ultrasound ordered which was done today which showed a left soleal DVT. She had unremarkable CBC and chemistry in February. She will be started on Eliquis twice daily outpatient follow-up with her primary care physician. Discharge Plan Triage Chief Complaint: Lower Extremity Injury ED Provider: Hadley Casas Dx/Rx/DC Orders Clinical Impression: DVT (deep venous thrombosis), Acute pain of left lower extremity Instructions: ED Deep Vein Thrombosis (DVT) Prescriptions: New Eliquis DVT-PE Treat 30D Start 5 mg (74 tabs) tablets,dose pack 5 mg PO BID Qty: 74 0RF No Action citalopram 20 MG tablet 20 mg PO DAILY Patient Comments: depression metformin 500 MG tablet 500 mg PO DAILY atorvastatin 20 MG tablet 20 mg PO QHS loratadine 10 MG capsule 10 mg PO DAILY tramadol 50 mg tablet 50 mg PO TID PRN balsalazide 750 mg capsule 2,250 mg PO TID Ozempic 2 mg/dose (8 mg/3 mL) pen injector 2 mg subcut QWEEK hydrocodone-acetaminophen 5-325 mg tablet 1 tab PO Q6H PRN PRN (Reason: Pain) 3 Days Qty: 12 0RF Primary Care Provider: Yann Headley Referrals: Yann Headley MD [Primary Care Provider] - 1 Week Activity Restrictions/Additional Instructions: The Eliquis which is a blood thinner take as prescribed. This is to stabilize a blood clot in your left calf. Get your prescription filled and start the medication today. Anytime you are on a blood thinner if you hit your head you need to be evaluated. Watch for any signs of bleeding especially with your history of colitis if you notice significant rectal bleeding or black stool. If you see this need to be reevaluated. Follow-up with your doctor. Typically people are on the Eliquis at least 3 months if not 6. They can recheck your leg with another ultrasound to see if the clot is resolved. And then we will decide if they can take you off the blood thinner. Print Language: Citizen [place] Disposition Disposition: Home, Self Care
[2024-07-18 12:00] VITALS: BP 134/66; PULSE 64; RESP 18; TEMP 36.6; O2SAT 99
== END 2024-07-18 12:00 | disposition home or self-care (01) ==
PROVIDERS: Emergency Provider Emergency Medicine; PCP Family Medicine; Visit Provider Emergency Medicine
DX: I82.462 Acute embolism and thrombosis of left calf muscular vein (principal)
CPT/HCPCS: 99282

== ENCOUNTER → 2024-07-18 | Outpatient (CLI) | payer OTHER, SELFPAY ==
--- NOTE | 2024-07-18 10:30 | VDLE_ITS ---
Reason For Study Reason For Study: Left leg pain RIGHT LEFT CFV is compressible, spontaneous, phasic, competent GSV is normal. and demonstrates normal augmentation. CFV is compressible, spontaneous, phasic, competent, Procedure and demonstrates normal augmentation. This is a venous duplex using B-mode, color flow and FV is compressible, spontaneous, phasic, competent and spectral Doppler. demonstrates normal augmentation. Exam performed in department. POP V is compressible, spontaneous, phasic, competent A preliminary report was called and/or faxed to ED. and demonstrates normal augmentation. Take to ED for treatment. T/P Trunk is compressible. PTV is compressible. LT PerV is compressible. Acute deep vein thrombosis is noted in the [place] V. It is dilated and NONCOMPRESSIBLE. Nonvascularized structure is noted in the left popliteal fossa that measures 1.22 x 2.61 x 5.30 cm. VL/Venous Duplex US, Unilateral Interpretation Summary Acute deep vein thrombosis is noted in the left soleus vein. Nonvascularized structure is noted in the left popliteal fossa that measures 1. 22 x 2.61 x 5.30 cm. Ordering Physician: Asha Cordova Referring Physician: Yann Headley MD Performed By: Payal Lobo RVT
== END | disposition home or self-care (01) ==
LOC: CVS 10:24
PROVIDERS: PCP Family Medicine; Referring Provider Physician Assistant; Visit Provider Physician Assistant
DX: I82.462 Acute embolism and thrombosis of left calf muscular vein (principal)
CPT/HCPCS: 93971

== ENCOUNTER → 2024-08-25 | Outpatient (CLI) | payer OTHER, SELFPAY ==
--- NOTE | 2024-08-25 09:54 | VDLE_ITS ---
Reason For Study Reason For Study: Acute Embolism RIGHT LEFT CFV is compressible, spontaneous, phasic, competent GSV is normal. and demonstrates normal augmentation. CFV is compressible, spontaneous, phasic, competent, Procedure and demonstrates normal augmentation. This is a venous duplex using B-mode, color flow and FV is compressible, spontaneous, phasic, competent spectral Doppler. and demonstrates normal augmentation. Exam performed in department. POP V is compressible, spontaneous, phasic, competent and demonstrates normal augmentation. T/P Trunk is compressible. PTV is compressible. LT PerV is compressible. Nonvascularized structure noted in the left popliteal fossa measuring 1.41x1.80 cm. VL/Venous Duplex US, Unilateral Interpretation Summary Deep veins of the left lower extremity are patent and compressible segmentally. There is no evidence of left lower extremity deep vein thrombosis. The left great saphenous vein appears patent an d compressible segmentally. Nonvascularized structure noted in the left popliteal fossa measuring 1.41x1.80 cm. Ordering Physician: Yann Headley Referring Physician: Yann Headley Performed By: Marlee Batista RVT
== END | disposition home or self-care (01) ==
LOC: CVS 09:44
PROVIDERS: PCP Family Medicine; Referring Provider Family Medicine; Visit Provider Family Medicine
DX: I82.492 Acute embolism and thrombosis of other specified deep vein of left lower extremity (principal)
CPT/HCPCS: 93971

== ENCOUNTER 2024-09-15 09:58 | Outpatient (CLI) | payer OTHER, SELFPAY ==
[2024-09-15 12:45] LABS: Hematocrit 33.6 % (37-47); Hemoglobin 10.5 g/dL (12.0-15.0); Immature Granulocytes Count 0.010 X10^3/uL (0.0-0.0); Mean Corp Hgb Conc 31.3 g/dL (32-36); Mean Corpuscular Volume 84.2 fL (81-99); Mean Platelet Vol. 9.4 fl (6.2-12.0); NRBC Flagged by Analyzer 0 % (0-5); Platelet Count 343 K/mm3 (150-450); RBC Distribution Width CV 12.3 % (11.6-14.6); RBC Distribution Width SD 37.6 fl (35.1-43.9); Red Blood Count 3.99 M/mm3 (4.2-5.4); White Blood Count 5.3 K/mm3 (4.4-11.0)
[2024-09-15 13:07] LABS: AST(SGOT) 24 U/L (<=31); Alanine Aminotransfer ALT/SGPT 11 U/L (<=34); Albumin, Serum 4.0 g/dL (3.4-4.8); Alkaline Phosphatase 112 U/L (35-104); Anion Gap 10 (5-15); BUN 10 mg/dL (4-19); BUN/Creat Ratio 12.2 RATIO (10-20); Calcium,Total 9.3 mg/dL (7.6-11.0); Carbon Dioxide 25.9 mmol/L (21.0-32.0); Chloride 101 mmol/L (98-108); Globulin 3.1 g/dL (2.2-4.2); Glucose 104 mg/dL (70-99); Iron 23 ug/dL (50-170); Potassium 4.1 mmol/L (3.3-5.1)
[2024-09-15 13:11] LABS: Ferritin 13 ng/mL (22-378); Vitamin B12 408 pg/mL (180-914); Vitamin D,25 Hydroxy 29.8 ng/mL (30-100)
== END 2024-09-15 23:59 | disposition home or self-care (01) ==
LOC: MTLAB 09:59
PROVIDERS: PCP Family Medicine; Referring Provider Family Medicine; Visit Provider Family Medicine
DX: K51.90 Ulcerative colitis, unspecified, without complications (principal); R53.83 Other fatigue; E55.9 Vitamin D deficiency, unspecified
CPT/HCPCS: 36415; 80053; 82306; 82607; 82728; 83540; 84443; 85025; 85652

== ENCOUNTER → 2024-11-23 | Outpatient (CLI) | payer OTHER, SELFPAY ==
--- NOTE | 2024-11-23 09:58 | US_ITS ---
PROCEDURE: EXT NON VASC LIMITED/SOFT TISS 11/23/2024 REASON FOR EXAM: LT BAKERS CYST, described on vascular ultrasound of 08/25/2024. TECHNIQUE: Procedure Code: [id number] Modality: US Procedure: Posterior left knee region ultrasound, centered about the popliteal fossa. COMPARISON: Vascular ultrasound 08/25/2024. US/Ext Non Vasc Limited/Soft Tiss IMPRESSION: No Cheng's or popliteal cyst is seen. No abnormal mass or fluid collection is noted. No aneurysm is seen in visualized areas. Negative examination. Reading Location: [place] [id number]
== END | disposition home or self-care (01) ==
PROVIDERS: PCP Family Medicine; Referring Provider Family Medicine; Visit Provider Family Medicine
DX: M71.22 Synovial cyst of popliteal space [Baker], left knee (principal)
CPT/HCPCS: 76882

== ENCOUNTER → 2025-01-06 | Outpatient (CLI) | payer OTHER, SELFPAY ==
[2025-01-06 10:22] LABS: Hematocrit 30.4 % (37-47); Hemoglobin 9.1 g/dL (12.0-15.0); Immature Granulocytes Count 0.010 X10^3/uL (0.0-0.0); Mean Corp Hgb Conc 29.9 g/dL (32-36); Mean Corpuscular Volume 71.9 fL (81-99); Mean Platelet Vol. 8.7 fl (6.2-12.0); NRBC Flagged by Analyzer 0 % (0-5); Platelet Count 400 K/mm3 (150-450); RBC Distribution Width CV 16.8 % (11.6-14.6); RBC Distribution Width SD 42.9 fl (35.1-43.9); Red Blood Count 4.23 M/mm3 (4.2-5.4); White Blood Count 5.0 K/mm3 (4.4-11.0)
[2025-01-06 11:02] LABS: Ferritin 9 ng/mL (22-378); Iron 17 ug/dL (50-170)
== END | disposition home or self-care (01) ==
LOC: MTLAB 08:11
PROVIDERS: PCP Family Medicine; Referring Provider Family Medicine; Visit Provider Family Medicine
DX: E55.9 Vitamin D deficiency, unspecified (principal)
CPT/HCPCS: 36415; 82728; 83540; 85025